=== PATIENT | male | born 1940 | race Caucasian/White ===

== ENCOUNTER 2017-04-17 15:58 | Emergency (ER) | payer MEDICARE ==
[~2017-04-17] VITALS: Ht 177.8 cm; Wt 120.0 kg
[~2017-04-17 15:58] MED LIST: ASPI325T PO; DORZ1SOL2 EACH EYE; LATA.005%O EACH EYE; SALS500 PO
--- NOTE | 2017-04-17 16:07 | PD ---
HPI Chief Complaint: fever Time Seen by Provider: 16:02 Travel History International Travel<30 days: No Contact w/Intl Traveler<30days: No Traveled to known affect area: No History of Present Illness HPI 76-year-old male patient presents to the ER brought in by EMS, apparently his car had broken down and he had called a tow truck, however, when a tow truck came, they found him in the car, with no air conditioning, and patient was disoriented. Patient currently is not able to answer questions appropriately, has a temperature of 102 according to EMS. Modifying Factors: None Associated Signs & Symptoms: Fever, altered mental status, possible heat related illness Risk Factors: Elderly PFSH Past Medical History Cardiac Catheterization: Yes Glaucoma: Yes Past Surgical History Abdominal Surgery: Yes (DOUBLE HERNIA REPAIR) Appendectomy: Yes Cholecystectomy: Yes Social History Alcohol Use: No Tobacco Use: No Substance Use: No Allergies-Medications (Allergen,Severity, Reaction): Uncoded Allergies: DECONGESTANT (Allergy, Severe, 05/12/13) Reported Meds & Prescriptions Reported Meds & Active Scripts Active Disalcid (Salsalate) 500 Mg Tab 1,000 Mg PO BID Reported Aspirin 325 Mg Tab 325 Mg PO DAILY Cosopt (Dorzolamide/Timolol) 5 Ml Soln 1 Drop EACH EYE BID Xalatan (Latanoprost) 0.005 % Soln 1 Drop EACH EYE HS Review of Systems ROS Limitations: Altered Mental Status Physical Exam Narrative GENERAL: Well-developed elderly white male patient currently in moderate distress, awake, alert, but not oriented. SKIN: Focused skin assessment hot/dry. HEAD: Atraumatic. Normocephalic. EYES: Pupils equal and round. No scleral icterus. No injection or drainage. ENT: No nasal bleeding or discharge. Mucous membranes pink and moist. NECK: Trachea midline. No JVD. CARDIOVASCULAR: Regular rate and rhythm. No murmur appreciated. RESPIRATORY: No accessory muscle use. Clear to auscultation. Breath sounds equal bilaterally. GASTROINTESTINAL: Abdomen soft, non-tender, nondistended. Hepatic and splenic margins not palpable. MUSCULOSKELETAL: No obvious deformities. No clubbing. No cyanosis. No edema. NEUROLOGICAL: Awake and alert. Not oriented. Not following commands. PSYCHIATRIC: Appropriate mood and affect; insight and judgment normal. Data Data Last Documented VS Vital Signs Date Time Temp Pulse Resp B/P Pulse Ox O2 Delivery O2 Flow Rate FiO2 04/17/17 17:53 99.0 82 20 123/77 96 Room Air Orders Electrocardiogram (04/17/17 16:02) Complete Blood Count With Diff (04/17/17 16:02) Comprehensive Metabolic Panel (04/17/17 16:) Prothrombin Time / Inr (Pt) (04/17/17 16:02) Act Partial Throm Time (Ptt) (04/17/17 16:02) Lactic Acid Sepsis Protocol (04/17/17 16:) Magnesium (Mg) (04/17/17 16:) Ckmb (Isoenzyme) Profile (04/17/17 16:) Troponin I (04/17/17 16:) Urinalysis - C+S If Indicated (04/17/17 16:) Blood Culture (04/17/17 16:02) Chest, Single Ap (04/17/17 16:02) Blood Glucose (04/17/17 16:) Ecg Monitoring (04/17/17 16:) Iv Access Insert/Monitor (04/17/17 16:) Oximetry (04/17/17 16:02) Oxygen Administration (04/17/17 16:02) Ct Brain W/O Iv Contrast(Rout) (04/17/17 16:02) Sodium Chlorid 0.9% 500 Ml Inj (Ns 500 M (04/17/17 16:15) Labs Laboratory Tests Test 04/17/17 16:20 White Blood Count 8.0 TH/MM3 Red Blood Count 4.32 MIL/MM3 Hemoglobin 12.3 GM/DL Hematocrit 38.1 % Mean Corpuscular Volume 88.3 FL Mean Corpuscular Hemoglobin 28.5 PG Mean Corpuscular Hemoglobin 32.3 % Concent Red Cell Distribution Width 13.9 % Platelet Count 230 TH/MM3 Mean Platelet Volume 8.0 FL Neutrophils (%) (Auto) 75.7 % Lymphocytes (%) (Auto) 15.1 % Monocytes (%) (Auto) 6.8 % Eosinophils (%) (Auto) 1.8 % Basophils (%) (Auto) 0.6 % Neutrophils # (Auto) 6.1 TH/MM3 Lymphocytes # (Auto) 1.2 TH/MM3 Monocytes # (Auto) 0.6 TH/MM3 Eosinophils # (Auto) 0.1 TH/MM3 Basophils # (Auto) 0.0 TH/MM3 CBC Comment DIFF FINAL Differential Comment Prothrombin Time 10.8 SEC Prothromb Time International 1.0 RATIO Ratio Activated Partial 24.6 SEC Thromboplast Time Urine Color YELLOW Urine Turbidity CLEAR Urine pH 5.0 Urine Specific [place] 1.015 Urine Protein NEG mg/dL Urine Glucose (UA) NEG mg/dL Urine Ketones NEG mg/dL Urine Occult Blood MOD Urine Nitrite NEG Urine Bilirubin NEG Urine Urobilinogen LESS THAN 2.0 MG/DL Urine Leukocyte Esterase TRACE Urine RBC 1 /hpf Urine WBC 1 /hpf Urine Amorphous Sediment RARE Urine Hyaline Casts 4 /lpf Microscopic Urinalysis Comment CATH-CULT NOT IND Sodium Level 140 MEQ/L Potassium Level 4.7 MEQ/L Chloride Level 109 MEQ/L Carbon Dioxide Level 19.9 MEQ/L Anion Gap 11 MEQ/L Blood Urea Nitrogen 27 MG/DL Creatinine 2.14 MG/DL Estimat Glomerular Filtration 30 ML/MIN Rate Random Glucose 118 MG/DL Lactic Acid Level 2.6 mmol/L Calcium Level 8.9 MG/DL Magnesium Level 1.7 MG/DL Total Bilirubin 0.4 MG/DL Aspartate Amino Transf 12 U/L (AST/SGOT) Alanine Aminotransferase 19 U/L (ALT/SGPT) Alkaline Phosphatase 71 U/L Total Creatine Kinase 94 U/L Troponin I LESS THAN 0.02 NG/ML Total Protein 7.3 GM/DL Albumin 3.4 GM/DL [facility] Medical Decision Making Medical Screen Exam Complete: Yes Emergency Medical Condition: Yes Medical Record Reviewed: Yes Interpretation(s) EKG shows NSR, no ST elevation or depression, and no arrhythmias. No significant T-wave inversions. Laboratory Tests Test 04/17/17 16:20 Red Blood Count 4.32 MIL/MM3 (4.50-5.90) Hemoglobin 12.3 GM/DL (13.0-17.0) Hematocrit 38.1 % (39.0-51.0) Neutrophils (%) (Auto) 75.7 % (16.0-70.0) Urine Occult Blood MOD (NEG) Urine Leukocyte Esterase TRACE (NEG) Chloride Level 109 MEQ/L (98-107) Carbon Dioxide Level 19.9 MEQ/L (21.0-32.0) Blood Urea Nitrogen 27 MG/DL (7-18) Creatinine 2.14 MG/DL (0.60-1.30) Estimat Glomerular Filtration 30 ML/MIN (>89) Rate Random Glucose 118 MG/DL (74-106) Lactic Acid Level 2.6 mmol/L (0.4-2.0) Aspartate Amino Transf 12 U/L (15-37) (AST/SGOT) Troponin I LESS THAN 0.02 NG/ML (0.02-0.05) Last [address] 04/17/17 1602 Signed Impressions: Service Date/Time: Monday, April 17, 2017 17:20 - CONCLUSION: Slight atrophic and small vessel ischemic changes without any evidence for acute hemorrhage or mass effect. Sriram Shipley MD Chest X-Ray 04/17/17 1602 Signed Impressions: Service Date/Time: Monday, April 17, 2017 15:59 - CONCLUSION: 1. Low lung volumes with mild bibasilar, left greater than right, airspace disease likely reflecting atelectasis. Differential considerations include aspiration in the appropriate clinical setting. Hudson Engel MD Differential Diagnosis Altered mental status, feverheat related illness versus sepsis versus metabolic issues versus dehydration versus acute intracranial processes Narrative Course Lab work shows elevated BUN and creatinine and likely some signs of dehydration. He was given IV fluids in the ER, and cold down. On reevaluation at 6:20 PM, he is feeling much improved and now conversant. He does not have any signs of acute intercranial processes. He has no focal neurological deficits. At this point, I have offered to admit him as an observation for further evaluation. However, patient is declining at this time, and states he wants to go home, states he feels fine. He is able to ambulate without issues in the ER. My plan would be to release him as requested by patient to follow- up with primary care physician. He should keep cool and Stay out of high places for now. Return for any worsening in symptoms as needed. The plan has been discussed with him and he is agreeable. Drink plenty of fluids. Diagnosis Primary Impression: Heat stroke Disposition: 01 DISCHARGE HOME Condition: Stable SoonAna Maria fine MD Apr 17, 2017 16:07
[2017-04-17 16:09] VITALS: BP 158/72; PULSE 99; RESP 26; TEMP 100.1; TEMP 101.3; O2SAT 92
[2017-04-17] MEDS ORDERED: SODIUM CHLORID 0.9% 500 ML INJ 500 ML IV ONE (16:15)
--- NOTE | 2017-04-17 16:44 | RADRPT ---
EXAM DATE/TIME: 04/17/2017 15:59 [facility] COMPARISON: No previous studies available for comparison. INDICATIONS : Syncopal episode. Patient found unresponsive in a hot car. MEDICAL HISTORY : Unobtainable. SURGICAL HISTORY : Unobtainable. ENCOUNTER: Initial ACUITY: 1 day PAIN SCORE: Non-responsive. LOCATION: Bilateral chest FINDINGS: Low lung volumes accentuate interstitial markings. Mild, left greater then right, bilateral lower suzan g zone air space disease. Cardiomediastinal contours are within normal limits given degree of hypoexp ansion and portable technique. Osseous structures are intact. CONCLUSION: 1. Low lung volumes with mild bibasilar, left greater than right, airspace disease likely reflecting atelectasis. Differential considerations include aspiration in the appropriate clinical setting. Hudson Engel MD on April 17, 2017 at 16:42 Board Certified Radiologist. This report was verified electronically.
[2017-04-17 16:57] LABS: BLOOD, URINE MOD (NEG); GLUCOSE,URINE NEG (NEG); HYALINE CAST, URINE 4 /lpf (RARE); KETONE, URINE NEG (NEG); NITRITE,URINE NEG (NEG); URINE COLOR YELLOW (YELLW/STRAW)
[2017-04-17 16:58] LABS: COMMENT (UR) CATH-CULT NOT IND; CULTURE IF INDICATED CATH CULTURE NOT IND
[2017-04-17 17:11] LABS: AUTOMATED NEUTROPHIL # 6.1 TH/MM3 (1.8-7.7); BASOPHIL % 0.6 % (0.0-2.0); EOSINOPHIL # 0.1 TH/MM3 (0-0.4); EOSINOPHIL % 1.8 % (0.0-4.0); HEMATOCRIT 38.1 % (39.0-51.0); HEMO FLAGS DIFF FINAL; LYMPH % 15.1 % (9.0-44.0); LYMPHOCYTE # 1.2 TH/MM3 (1.0-4.8); MEAN CELL VOLUME 88.3 FL (80.0-100.0); MEAN CORPUSCULAR HEMOGLOBIN 28.5 PG (27.0-34.0); MEAN CORPUSCULAR HGB CONC 32.3 % (32.0-36.0); MONO % 6.8 % (0.0-8.0); NEUT % 75.7 % (16.0-70.0); PLATELET COUNT 230 TH/MM3 (150-450); RED BLOOD COUNT 4.32 MIL/MM3 (4.50-5.90); RED CELL DISTRIBUTION WIDTH 13.9 % (11.6-17.2)
[2017-04-17 17:16] LABS: APTT (PATIENT) 24.6 SEC (24.3-30.1); PROTHROMBIN TIME - PATIENT 10.8 SEC (9.8-11.6)
[2017-04-17 17:22] LABS: ANION GAP 11 MEQ/L (5-15); AST (GOT) 12 U/L (15-37); BICARBONATE 19.9 MEQ/L (21.0-32.0); BLOOD UREA NITROGEN 27 MG/DL (7-18); CHLORIDE 109 MEQ/L (98-107); GLOMERULAR FILTRATION RATE 30 ML/MIN (>89); MAGNESIUM 1.7 MG/DL (1.5-2.5); POTASSIUM 4.7 MEQ/L (3.5-5.1); SODIUM (NA) 140 MEQ/L (136-145)
[2017-04-17 17:27] LABS: ALKALINE PHOSPHATASE 71 U/L (45-117); ALT (GPT) 19 U/L (12-78); TOTAL BILIRUBIN ADULT 0.4 MG/DL (0.2-1.0)
[2017-04-17 17:36] LABS: CREATINE KINASE 94 U/L (39-308)
--- NOTE | 2017-04-17 17:51 | RADRPT ---
EXAM DATE/TIME: 04/17/2017 17:20 [facility] COMPARISON: No previous studies available for comparison. INDICATIONS : Altered mental status. RADIATION DOSE: 69.15 CTDIvol (mGy) MEDICAL HISTORY : Cardiovascular disease. SURGICAL HISTORY : Appendectomy. Cholecystectomy. ENCOUNTER: Initial ACUITY: 1 day PAIN SCALE: 0/10 LOCATION: cranial TECHNIQUE: Multiple contiguous axial images were obtained of the head. Using automated exposure control and adj ustment of the mA and/or kV according to patient size, radiation dose was kept as low as reasonably a chievable to obtain optimal diagnostic quality images. DICOM format image data is available electro nically for review and comparison. FINDINGS: There is no evidence for intracranial hemorrhage, mass effect, mass lesions, or edema. The visualize d bony structures appear intact. Slight degree of brain atrophy is seen. Slight periventricular whit e matter changes are seen nonspecific mostly consistent with chronic small vessel ischemic changes. There are no signs of acute infarction for technique. CONCLUSION: Slight atrophic and small vessel ischemic changes without any evidence for acute hemorrhage or mass effect. Sriram Shipley MD on April 17, 2017 at 17:48 Board Certified Radiologist. This report was verified electronically.
[2017-04-17 17:53] VITALS: BP 123/77; PULSE 82; RESP 20; TEMP 99; O2SAT 96
[2017-04-17 18:51] LABS: LACTIC ACID GHOST NOT REPORTABLE
--- NOTE | 2017-04-18 10:26 | EKG ---
Date Performed: 04/17/2017 Time Performed: 16:21:23 PTAGE: 76 years EKG: Sinus rhythm MODERATE INTRAVENTRICULAR CONDUCTION DELAY NONSPECIFIC ST & T-WAVE ABNORMALITY BORDERLINE ECG NO PREVIOUS TRACING ST-T wave changes secondary to intraventricular conduction delay or p ossible ischemia. DOCTOR: Deshawn Albright Interpretating Date/Time 04/18/2017 10:26:17
== END 2017-04-17 19:07 | disposition home or self-care (01) ==
LOC: NEPC 15:58
DX: T67.0XXA Heatstroke and sunstroke, initial encounter (principal); X30.XXXA Exposure to excessive natural heat, initial encounter; Z79.82 Long term (current) use of aspirin; Z79.899 Other long term (current) drug therapy
CPT/HCPCS: 70450; 71010; 80053; 81001; 82550; 83605; 83735; 84484; 85025; 85610; 85730; 87040; 93005; 96360; 99285; J7040

== ENCOUNTER 2018-07-15 19:00 | Inpatient (IN) ==
--- NOTE | 2018-07-15 20:46 | ED ---
HPI General Chief Complaint: Fall Stated Complaint: fall yesterday-head gash Time Seen by Provider: 07/15/18 20:16 History of Present Illness HPI Narrative: Patient is a 77-year-old male who was in his kitchen fixing some tea when he suddenly syncopized he does not remember exactly how or why he passed out he says I think I passed out he has a head laceration to his crown of his head and over the right eyebrow there is a linear laceration 3 cm not bleeding at this time dry blood. He denies chest pain prior to the event he denies any fluid loss no diarrhea no vomiting no fevers he was fine all morning up until the event. He has had no medical care for many years the only thing he is aware that he has glaucoma for which he does use drops otherwise he is not on any systemic medications denies blood hypertension denies diabetes denies cardiac history. He says once in the distant past he passed out as well never had any follow-up and does not know why. Now he is back to his baseline awake alert his sister is bedside patient is only obvious injury is the head and the eye laceration above the eyebrow as well as a bruise to the fourth finger on the left hand Related Data Home Medications Medication Instructions Recorded Confirmed dorzolamide-timolol [Cosopt] 1 drp RIGHT EYE HS 07/15/18 07/15/18 Allergies Allergy/AdvReac Type Severity Reaction Status Date / Time No Known Allergies Allergy Unverified 07/15/18 20:22 Review of Systems ROS: all other systems reviewed are negative [facility] Social History Social History Substance History: No History of Abuse Second Hand Smoke Exposure: No Smoking Status: Never smoker How Often Do You Have a Drink Containing Alcohol: Never Recent Travel in [facility] within the Last 8 Weeks: No Recent Out of Country Travel within the Last 8 Weeks: No Immunization History Tetanus Immunization: >5 Years Exam Narrative Exam Narrative: GENERAL: awake alert seems calm not very animated in his responses ( sister says affect is his baseline) SKIN: Warm and dry. lac to right forehead to right eyebrow dried blod no active bleeding HEAD: + Traumatic. Normocephalic. Lac to scalp 5 cm EYES: Pupils equal and round. No scleral icterus. No injection or drainage. ENT: No nasal bleeding or discharge. Mucous membranes pink and moist. NECK: Trachea midline. No JVD. CARDIOVASCULAR: Regular rate and rhythm. RESPIRATORY: No accessory muscle use. Clear to auscultation. Breath sounds equal bilaterally. GASTROINTESTINAL: Abdomen soft, non-tender, nondistended. Hepatic and splenic margins not palpable. MUSCULOSKELETAL: Extremities third finger bruise purple to left third PIP area No obvious deformities. NEUROLOGICAL: Awake and alert. No obvious cranial nerve deficits. Motor grossly within normal limits. Five out of 5 muscle strength in the arms and legs. Normal speech. PSYCHIATRIC: Appropriate mood flat affect; insight and judgment normal. Course Initial Documented Vital Signs Temperature 97.4 F L 07/15/18 19:24 Pulse Rate 92 H 07/15/18 19:24 Respiratory Rate 20 07/15/18 19:24 Blood Pressure 125/68 07/15/18 19:24 Pulse Oximetry 97 07/15/18 19:24 Last Documented Vital Signs Temperature 98.2 F 07/19/18 12:09 Pulse Rate 68 07/19/18 12:09 Respiratory Rate 20 07/19/18 12:09 Blood Pressure 163/89 H 07/19/18 12:09 Pulse Oximetry 98 07/19/18 12:09 Medical Decision Making [facility] Narrative Medical decision making narrative: CT head and face and cervical , laceration repaired by PA and admitted syncope Medical Screen Exam Complete: Yes Emergency Medical Condition: Yes Differential Diagnosis Differential Diagnosis: mechanical fall vs syncope due to neuro vs cardiac vs orthostatic vs arrhythmia to syncope other head injury skull fracture vs intracranial bleed other laceration scalp face Lab Data Result diagrams: 07/17/18 06:35 07/19/18 06:48 Lab Results 07/15/18 07/15/18 07/16/18 Range/Units 20:34 20:34 02:26 WBC 11.9 H (4.0-11.0) th/mm3 RBC 4.12 L (4.50-5.90) mil/mm3 Hgb 12.1 L (13.0-17.0) gm/dL Hct 36.8 L (39.0-51.0) % MCV 89.3 (80.0-100.0) fL MCH 29.5 (27.0-34.0) pg MCHC 33.0 (32.0-36.0) % RDW 13.5 (11.6-17.2) % Plt Count 267 (150-450) th/mm3 MPV 7.1 (7.0-11.0) fL Neut % (Auto) 85.9 H (16.0-70.0) % Lymph % (Auto) 7.7 L (9.0-44.0) % [place] % (Auto) 5.9 (0.0-8.0) % Eos % (Auto) 0.2 (0.0-4.0) % Baso % (Auto) 0.3 (0.0-2.0) % Neut # (Auto) 10.2 H (1.8-7.7) th/mm3 Lymph # (Auto) 0.9 L (1.0-4.8) th/mm3 [place] # (Auto) 0.7 (0.0-0.9) th/mm3 Eos # (Auto) 0.0 (0.0-0.4) th/mm3 Baso # (Auto) 0.0 (0.0-0.2) th/mm3 WBC Differential . Differential Comment Auto diff final Sodium 139 (136-145) meq/L Potassium 4.5 (3.5-5.1) meq/L Chloride 105 (98-107) meq/L Carbon Dioxide 23.1 (21.0-32.0) meq/L Anion Gap 11 (5-15) meq/L BUN 31 H (7-18) mg/dL Creatinine 2.81 H (0.60-1.30) mg/dL Estimated GFR 22 L (>89) mL/min Random Glucose 130 H (74-106) mg/dL Hemoglobin A1c (4.3-6.0) % Calcium 8.5 (8.5-10.1) mg/dL Total Bilirubin 0.2 (0.2-1.0) mg/dL AST 24 (15-37) U/L ALT 22 (12-78) U/L Alkaline Phosphatase 83 (45-117) U/L Total Creatine Kinase (39-308) U/L Troponin I 0.03 0.03 (0.02-0.05) ng/mL Total Protein 7.4 (6.4-8.2) g/dL Albumin 3.3 L (3.4-5.0) g/dL Triglycerides (42-150) mg/dL Cholesterol (120-200) mg/dL LDL Cholesterol, Calc (0-99) mg/dL HDL Cholesterol (40.0-60.0) mg/dL Cholesterol/HDL Ratio Ratio Cortisol mcg/dL Urine Color (Yellw/Straw) Urine Clarity (Clear) Urine pH (5.0-8.5) Ur Specific [place] (1.002-1.035) Urine Protein (Neg-Trace) mg/dL Urine Glucose (UA) (Negative) mg/dL Urine Ketones (Negative) mg/dL Urine Occult Blood (Negative) Urine Nitrate (Negative) Urine Bilirubin (Negative) Urine Urobilinogen (Less than 2) mg/dL Ur Leukocyte Esterase (Negative) Urine RBC (0-3) /hpf Urine WBC (0-5) /hpf Ur Squamous Epith Cells (0-5) /hpf Urine Bacteria (None) /hpf Hyaline Casts (0-3) /lpf Urine Mucus (Occasional) /lpf Micro UA Comment Ur Microscopic Review Urine Culture Comments 07/16/18 07/16/18 07/16/18 Range/Units 07:05 07:05 07:05 WBC 6.8 (4.0-11.0) th/mm3 RBC 3.79 L (4.50-5.90) mil/mm3 Hgb 11.2 L (13.0-17.0) gm/dL Hct 33.3 L (39.0-51.0) % MCV 87.9 (80.0-100.0) fL MCH 29.5 (27.0-34.0) pg MCHC 33.6 (32.0-36.0) % RDW 13.6 (11.6-17.2) % Plt Count 214 (150-450) th/mm3 MPV 7.2 (7.0-11.0) fL Neut % (Auto) 74.6 H (16.0-70.0) % Lymph % (Auto) 16.2 (9.0-44.0) % [place] % (Auto) 7.3 (0.0-8.0) % Eos % (Auto) 1.4 (0.0-4.0) % Baso % (Auto) 0.5 (0.0-2.0) % Neut # (Auto) 5.1 (1.8-7.7) th/mm3 Lymph # (Auto) 1.1 (1.0-4.8) th/mm3 [place] # (Auto) 0.5 (0.0-0.9) th/mm3 Eos # (Auto) 0.1 (0.0-0.4) th/mm3 Baso # (Auto) 0.0 (0.0-0.2) th/mm3 WBC Differential . Differential Comment Auto diff final Sodium 140 (136-145) meq/L Potassium 4.4 (3.5-5.1) meq/L Chloride 107 (98-107) meq/L Carbon Dioxide 22.0 (21.0-32.0) meq/L Anion Gap 11 (5-15) meq/L BUN 27 H (7-18) mg/dL Creatinine 2.40 H (0.60-1.30) mg/dL Estimated GFR 26 L (>89) mL/min Random Glucose 104 (74-106) mg/dL Hemoglobin A1c 6.2 H (4.3-6.0) % Calcium 8.3 L (8.5-10.1) mg/dL Total Bilirubin 0.4 (0.2-1.0) mg/dL AST 19 (15-37) U/L ALT 18 (12-78) U/L Alkaline Phosphatase 67 (45-117) U/L Total Creatine Kinase (39-308) U/L Troponin I 0.02 (0.02-0.05) ng/mL Total Protein 6.6 D (6.4-8.2) g/dL Albumin 2.9 L (3.4-5.0) g/dL Triglycerides (42-150) mg/dL Cholesterol (120-200) mg/dL LDL Cholesterol, Calc (0-99) mg/dL HDL Cholesterol (40.0-60.0) mg/dL Cholesterol/HDL Ratio Ratio Cortisol mcg/dL Urine Color (Yellw/Straw) Urine Clarity (Clear) Urine pH (5.0-8.5) Ur Specific [place] (1.002-1.035) Urine Protein (Neg-Trace) mg/dL Urine Glucose (UA) (Negative) mg/dL Urine Ketones (Negative) mg/dL Urine Occult Blood (Negative) Urine Nitrate (Negative) Urine Bilirubin (Negative) Urine Urobilinogen (Less than 2) mg/dL Ur Leukocyte Esterase (Negative) Urine RBC (0-3) /hpf Urine WBC (0-5) /hpf Ur Squamous Epith Cells (0-5) /hpf Urine Bacteria (None) /hpf Hyaline Casts (0-3) /lpf Urine Mucus (Occasional) /lpf Micro UA Comment Ur Microscopic Review Urine Culture Comments 07/16/18 07/17/18 07/17/18 Range/Units 19:00 06:30 06:35 WBC 7.1 (4.0-11.0) th/mm3 RBC 3.69 L (4.50-5.90) mil/mm3 Hgb 10.8 L (13.0-17.0) gm/dL Hct 32.9 L (39.0-51.0) % MCV 89.1 (80.0-100.0) fL MCH 29.4 (27.0-34.0) pg MCHC 33.0 (32.0-36.0) % RDW 13.6 (11.6-17.2) % Plt Count 210 (150-450) th/mm3 MPV 7.4 (7.0-11.0) fL Neut % (Auto) 75.0 H (16.0-70.0) % Lymph % (Auto) 15.7 (9.0-44.0) % [place] % (Auto) 6.5 (0.0-8.0) % Eos % (Auto) 2.2 (0.0-4.0) % Baso % (Auto) 0.6 (0.0-2.0) % Neut # (Auto) 5.4 (1.8-7.7) th/mm3 Lymph # (Auto) 1.1 (1.0-4.8) th/mm3 [place] # (Auto) 0.5 (0.0-0.9) th/mm3 Eos # (Auto) 0.2 (0.0-0.4) th/mm3 Baso # (Auto) 0.0 (0.0-0.2) th/mm3 WBC Differential . Differential Comment Auto diff final Sodium 145 (136-145) meq/L Potassium 4.8 (3.5-5.1) meq/L Chloride 111 H (98-107) meq/L Carbon Dioxide 23.9 (21.0-32.0) meq/L Anion Gap 10 (5-15) meq/L BUN 27 H (7-18) mg/dL Creatinine 2.34 H (0.60-1.30) mg/dL Estimated GFR 27 L (>89) mL/min Random Glucose 86 (74-106) mg/dL Hemoglobin A1c (4.3-6.0) % Calcium 7.9 L (8.5-10.1) mg/dL Total Bilirubin (0.2-1.0) mg/dL AST (15-37) U/L ALT (12-78) U/L Alkaline Phosphatase (45-117) U/L Total Creatine Kinase 180 (39-308) U/L Troponin I (0.02-0.05) ng/mL Total Protein (6.4-8.2) g/dL Albumin (3.4-5.0) g/dL Triglycerides 100 (42-150) mg/dL Cholesterol 151 (120-200) mg/dL LDL Cholesterol, Calc 94 (0-99) mg/dL HDL Cholesterol 37.1 L (40.0-60.0) mg/dL Cholesterol/HDL Ratio 4.07 Ratio Cortisol mcg/dL Urine Color Yellow (Yellw/Straw) Urine Clarity Cloudy H (Clear) Urine pH 5.0 (5.0-8.5) Ur Specific [place] 1.013 (1.002-1.035) Urine Protein 30 H (Neg-Trace) mg/dL Urine Glucose (UA) Negative (Negative) mg/dL Urine Ketones Negative (Negative) mg/dL Urine Occult Blood Large H (Negative) Urine Nitrate Negative (Negative) Urine Bilirubin Negative (Negative) Urine Urobilinogen Less than 2 (Less than 2) mg/dL Ur Leukocyte Esterase Small H (Negative) Urine RBC (0-3) /hpf Urine WBC 26 H (0-5) /hpf Ur Squamous Epith Cells 1 (0-5) /hpf Urine Bacteria Rare H (None) /hpf Hyaline Casts 1 (0-3) /lpf Urine Mucus Few H (Occasional) /lpf Micro UA Comment Culture indicated Ur Microscopic Review Not Reportable Urine Culture Comments Culture indicated 07/18/18 07/19/18 07/19/18 Range/Units 04:55 06:48 06:48 WBC (4.0-11.0) th/mm3 RBC (4.50-5.90) mil/mm3 Hgb (13.0-17.0) gm/dL Hct (39.0-51.0) % MCV (80.0-100.0) fL MCH (27.0-34.0) pg MCHC (32.0-36.0) % RDW (11.6-17.2) % Plt Count (150-450) th/mm3 MPV (7.0-11.0) fL Neut % (Auto) (16.0-70.0) % Lymph % (Auto) (9.0-44.0) % [place] % (Auto) (0.0-8.0) % Eos % (Auto) (0.0-4.0) % Baso % (Auto) (0.0-2.0) % Neut # (Auto) (1.8-7.7) th/mm3 Lymph # (Auto) (1.0-4.8) th/mm3 [place] # (Auto) (0.0-0.9) th/mm3 Eos # (Auto) (0.0-0.4) th/mm3 Baso # (Auto) (0.0-0.2) th/mm3 WBC Differential Differential Comment Sodium 141 140 (136-145) meq/L Potassium 4.6 4.8 (3.5-5.1) meq/L Chloride 109 H 108 H (98-107) meq/L Carbon Dioxide 21.7 23.8 (21.0-32.0) meq/L Anion Gap 10 8 (5-15) meq/L BUN 31 H 33 H (7-18) mg/dL Creatinine 2.38 H 2.31 H (0.60-1.30) mg/dL Estimated GFR 27 L 27 L (>89) mL/min Random Glucose 100 88 (74-106) mg/dL Hemoglobin A1c (4.3-6.0) % Calcium 8.6 8.7 (8.5-10.1) mg/dL Total Bilirubin (0.2-1.0) mg/dL AST (15-37) U/L ALT (12-78) U/L Alkaline Phosphatase (45-117) U/L Total Creatine Kinase (39-308) U/L Troponin I (0.02-0.05) ng/mL Total Protein (6.4-8.2) g/dL Albumin (3.4-5.0) g/dL Triglycerides (42-150) mg/dL Cholesterol (120-200) mg/dL LDL Cholesterol, Calc (0-99) mg/dL HDL Cholesterol (40.0-60.0) mg/dL Cholesterol/HDL Ratio Ratio Cortisol 16.6 mcg/dL Urine Color (Yellw/Straw) Urine Clarity (Clear) Urine pH (5.0-8.5) Ur Specific [place] (1.002-1.035) Urine Protein (Neg-Trace) mg/dL Urine Glucose (UA) (Negative) mg/dL Urine Ketones (Negative) mg/dL Urine Occult Blood (Negative) Urine Nitrate (Negative) Urine Bilirubin (Negative) Urine Urobilinogen (Less than 2) mg/dL Ur Leukocyte Esterase (Negative) Urine RBC (0-3) /hpf Urine WBC (0-5) /hpf Ur Squamous Epith Cells (0-5) /hpf Urine Bacteria (None) /hpf Hyaline Casts (0-3) /lpf Urine Mucus (Occasional) /lpf Micro UA Comment Ur Microscopic Review Urine Culture Comments Imaging Data Radiologist's impression: Cervical Spine CT 07/15/18 20:26 CONCLUSION: 1. No evidence of compression deformity or spondylolisthesis. 2. Multilevel degenerative changes with neural foraminal stenosis as described above. Face CT 07/15/18 20:26 CONCLUSION: 1. No facial bone fractures seen. Head CT 07/15/18 20:26 CONCLUSION: 1. No acute findings in the brain. 2. Stable moderate severity central and cortical atrophy. . Abdomen/Bladder Ultrasound 07/16/18 00:00 CONCLUSION: 1. Mild hydronephrosis left kidney. 2. Nonobstructing bilateral renal calculi. 3. Bladder calculus measures 9 mm. 4. Enlarged prostate gland. Chest X-Ray 07/16/18 00:00 CONCLUSION: No acute cardiopulmonary abnormality is identified. Finger X-Ray 07/16/18 00:00 CONCLUSION: Acute avulsion fracture involving the dorsal aspects of the distal phalanx of the third finger with resulting flexion of the joint. Discharge Plan Discharge Disposition Patient Disposition: 30 Still Patient Physicians Team ED Provider: Mike Resendiz Primary Care Provider: Primary Care Quinn,Heather Attending Provider: Neil Parham Other Providers: En Mata Discharge Interventions Interventions: ED Discharge Assessment Last Done: 07/15/18 23:45 Vital Signs Last Done: 07/15/18 20:39 Status ED Status: Left Department Discharge Information Discharge Date/Time: 07/15/18 23:46
[2018-07-15 20:49] LABS: Baso % (Auto) 0.3 % (0.0-2.0); Eos % (Auto) 0.2 % (0.0-4.0); Hematocrit 36.8 % (39.0-51.0); Hemoglobin 12.1 gm/dL (13.0-17.0); Lymph # (Auto) 0.9 th/mm3 (1.0-4.8); Lymph % (Auto) 7.7 % (9.0-44.0); Mean Corpuscular Hemoglobin 29.5 pg (27.0-34.0); Mean Corpuscular Volume 89.3 fL (80.0-100.0); Mean Platelet Volume 7.1 fL (7.0-11.0); Mono # (Auto) 0.7 th/mm3 (0.0-0.9); Mono % (Auto) 5.9 % (0.0-8.0); Neut # (Auto) 10.2 th/mm3 (1.8-7.7); Neut % (Auto) 85.9 % (16.0-70.0); Platelet Count 267 th/mm3 (150-450); Red Blood Count 4.12 mil/mm3 (4.50-5.90); Red Cell Distribution Width 13.5 % (11.6-17.2); White Blood Count 11.9 th/mm3 (4.0-11.0)
--- NOTE | 2018-07-15 21:01 | CT ---
EXAM DATE: 07/15/2018 8:30 PM EDT AGE/SEX: 77 years / Male INDICATIONS: Trauma. Fell yesterday. CLINICAL DATA: This is the patient's initial encounter. Patient reports that signs and symptoms have been present for 1 day and indicates a pain score of 0/10. MEDICAL/SURGICAL HISTORY: None. Appendectomy. Cholecystectomy. RADIATION DOSE: 63.50 CTDI (mGy) COMPARISON: No prior exams available for comparison. TECHNIQUE: Contiguous images in the axial and coronal planes were obtained using helical multirow de tector technique. Using automated exposure control and adjustment of the mA and/or kV according to p atient size, radiation dose was kept as low as reasonably achievable to obtain optimal diagnostic saleem lity images. DICOM format image data is available electronically for review and comparison. FINDINGS: Orbits: The orbital and infraorbital osseous structures are intact. The retroconal structures have a normal configuration. No radiopaque foreign bodies are seen. Nasal Bone: The nasal bone and maxillary spine are intact. Zygomatic Arches: Symmetric without evidence of fracture. Sinuses: Minimal mucosal thickening in the posterior left maxillary sinus. Remainder of the paranasa l sinuses are clear. Nasal Cavity: The nasal septum is intact and midline. The lacrimal ducts are intact. Soft Tissues: No radiopaque foreign bodies seen. No soft-tissue swelling is seen. Intracranial: No intracranial air seen. Cribriform Plate: Grossly intact. CONCLUSION: 1. No facial bone fractures seen. Electronically signed by: Dion Wyatt MD 07/15/2018 8:59 PM EDT
--- NOTE | 2018-07-15 21:02 | CT ---
EXAM DATE: 07/15/2018 8:30 PM EDT AGE/SEX: 77 years / Male INDICATIONS: Fell yesterday with laceration top of head. CLINICAL DATA: This is the patient's initial encounter. Patient reports that signs and symptoms have been present for 1 day and indicates a pain score of 0/10. MEDICAL/SURGICAL HISTORY: None. Appendectomy. Cholecystectomy. RADIATION DOSE: 34.49 CTDI (mGy) COMPARISON: [facility] [place], 04/17/2017. . TECHNIQUE: CT of the head without contrast. Using automated exposure control and adjustment of the mA and/or kV according to patient size, radiation dose was kept as low as reasonably achievable to ob tain optimal diagnostic quality images. DICOM format image data is available electronically for revi ew and comparison. FINDINGS: Cerebrum: The ventricles, sulci, and basal cisterns are prominent characteristic of moderate severit y central cortical atrophy, stable in severity when compared to April 2017.. No evidence of midline s hift, mass lesion, hemorrhage or acute infarction. No extraaxial fluid collections are seen. Posterior Fossa: The cerebellum and brainstem are intact. The 4th ventricle is midline. The cerebe llopontine angle is unremarkable. Extracranial: The visualized portion of the orbits is intact. Minimal mucosal thickening posterior l eft maxillary sinus. Skull: The calvaria is intact. No evidence of skull fracture. CONCLUSION: 1. No acute findings in the brain. 2. Stable moderate severity central and cortical atrophy. . Electronically signed by: Dion Wyatt MD 07/15/2018 9:01 PM EDT
[2018-07-15 21:09] LABS: Alkaline Phosphatase 83 U/L (45-117); Total Protein 7.4 g/dL (6.4-8.2); Troponin I 0.03 ng/mL (0.02-0.05)
[2018-07-15 21:11] LABS: Alanine Aminotransferase 22 U/L (12-78); Albumin 3.3 g/dL (3.4-5.0); Anion Gap 11 meq/L (5-15); Aspartate Aminotransferase 24 U/L (15-37); Blood Urea Nitrogen 31 mg/dL (7-18); Calcium 8.5 mg/dL (8.5-10.1); Carbon Dioxide 23.1 meq/L (21.0-32.0); Chloride 105 meq/L (98-107); Glomerular Filtration Rate 22 mL/min (>89); Glucose,Random 130 mg/dL (74-106); Potassium 4.5 meq/L (3.5-5.1); Sodium 139 meq/L (136-145)
--- NOTE | 2018-07-15 21:12 | CT ---
EXAM DATE: 07/15/2018 8:30 PM EDT AGE/SEX: 77 years / Male INDICATIONS: Trauma. Fell yesterday. CLINICAL DATA: This is the patient's initial encounter. Patient reports that signs and symptoms have been present for 1 day and indicates a pain score of 0/10. MEDICAL/SURGICAL HISTORY: None. Appendectomy. Cholecystectomy. RADIATION DOSE: 25.02 CTDI (mGy) COMPARISON: No prior exams available for comparison. TECHNIQUE: Contiguous axial images were obtained using helical multirow detector technique. The vol umetric data was post-processed with multiplanar reconstruction in oblique axial, sagittal, and coron al planes. Using automated exposure control and adjustment of the mA and/or kV according to patient s ize, radiation dose was kept as low as reasonably achievable to obtain optimal diagnostic quality justo ges. DICOM format image data is available electronically for review and comparison. FINDINGS: There is normal alignment of the vertebral bodies of the cervical spine and preservation of vertebra l body height. Moderate severity discogenic degenerative changes are present at C5-C7 with interspace narrowing and prominent posterior osteophytes. There is moderate severity arthrosis of the facet catrina nts of the mid and lower cervical spine, right greater than left without evidence of locked or perche d facets. The atlantoaxial articulation is intact. C2-3: No fracture seen. The neural foramina are patent. C3-4: No fracture seen. Severe right-sided bony neural foraminal stenosis. C4-5: No fracture seen. Moderate severity bilateral bony neural foraminal stenosis. C5-6: No fracture seen. Severe right-sided and moderate severity left-sided bony neural foraminal st enosis. C6-7: No fracture seen. Severe bilateral bony neural foraminal stenosis. C7-T1: No fracture seen. The neural foramina are patent. CONCLUSION: 1. No evidence of compression deformity or spondylolisthesis. 2. Multilevel degenerative changes with neural foraminal stenosis as described above. Electronically signed by: Dion Wyatt MD 07/15/2018 9:11 PM EDT
[2018-07-15] MEDS ORDERED: Acetaminophen 325 MG Tablet PO PRN (22:58)
[2018-07-15] MEDS ORDERED: Bisacodyl 10 MG Supp RECTAL PRN (22:58)
--- NOTE | 2018-07-15 23:00 | P.HPIM ---
History of Present Illness Primary Care Physician: No Primary Care Physician History of Present Illness: This is a 77-year-old male with a PMH of Glaucoma who was brought to the ER after apparent syncopal event. Pt w/ mechanical trip and fall, +head trauma, unsure if he had LOC. No fever, chills or chest pain. On arrival, BP 125/68, HR 90, O2 sat 97% on RA, Afebrile. WBC 11.9. Creatinine 2.81, previously 2.14 on 04/17/17. CT C-spine with no acute compression deformity. CT Head negative for acute findings. CT Maxillofacial negative for fracture. S/p laceration repair in ER. - Diagnosis (1) Syncope (2) Laceration of head (3) Leukocytosis Review of Systems PAST FAMILY HISTORY: Reviewed. No h/o DM or CAD All other systems reviewed negative except as stated in HPI [facility] - History History Provided By: Patient - Medical History Medical History: Medical History (Last Updated 07/15/18 @ 19:25 by Joel Gibbs) Glaucoma - Surgical History Surgical History: Surgical History (Last Updated 07/15/18 @ 20:25 by Laura Segal RN) H/O hernia repair History of appendectomy History of cholecystectomy - Tobacco History Second Hand Smoke Exposure: No Smoking Status: Never smoker - Alcohol History How Often Do You Have a Drink Containing Alcohol: 4 or more times a week - Substance Use History Substance History: No History of Abuse - Travel History Recent Travel in the [place] Within the Last 8 Weeks: No Recent Travel Out of the Country Within the Last 8 Weeks: No - Immunization History Tetanus Immunization: >5 Years Medications and Allergies Allergies Allergy/AdvReac Type Severity Reaction Status Date / Time No Known Allergies Allergy Unverified 07/15/18 20:22 Home Medications Medication Instructions Recorded Confirmed Type dorzolamide-timolol [Cosopt] 1 drp RIGHT EYE HS 07/15/18 07/15/18 History Exam Vital signs: Vital Signs 07/15/18 19:24 07/15/18 20:39 Temperature 97.4 F L Pulse Rate 92 H 84 Respiratory Rate 20 18 Blood Pressure 125/68 154/77 H Pulse Oximetry 97 95 Intake & Output 07/15/18 07/15/18 07/16/18 06:59 18:59 06:59 Weight 113.398 kg Narrative: PE: GENERAL: Pleasant elderly male in no acute distress. SKIN: Focused skin assessment warm and dry. +head laceration, +eyebrow laceration. HEENT: PERRLA, EOMI. No scleral icterus or conjunctival pallor. No lid lag or facial droop. CARDIOVASCULAR: Regular rate and rhythm. No obvious murmurs to auscultation. No chest tenderness to palpation. RESPIRATORY: No obvious rhonchi or wheezing. Clear to auscultation. Breath sounds equal bilaterally. GASTROINTESTINAL: Abdomen soft, non-tender, nondistended. BS normal. MUSCULOSKELETAL: Extremities without clubbing, cyanosis, or edema. No obvious deformities. NEUROLOGICAL: Awake, alert and oriented x4. No focal neurologic deficits. Moving both upper and lower extremities spontaneously. PSYCHIATRIC: Appropriate mood and affect. Insight and judgment normal. Results - Labs CBC & Chem 7: 07/15/18 20:34 07/15/18 20:34 Labs: Short CBC 07/15/18 Range/Units 20:34 WBC 11.9 H (4.0-11.0) th/mm3 Hgb 12.1 L (13.0-17.0) gm/dL Hct 36.8 L (39.0-51.0) % Plt Count 267 (150-450) th/mm3 BMP 07/15/18 20:34 Sodium 139 Potassium 4.5 Chloride 105 Carbon Dioxide 23.1 BUN 31 H Creatinine 2.81 H Calcium 8.5 Cardiac Enzymes 07/15/18 Range/Units 20:34 Troponin I 0.03 (0.02-0.05) ng/mL Liver Function 07/15/18 Range/Units 20:34 Total Bilirubin 0.2 (0.2-1.0) mg/dL AST 24 (15-37) U/L ALT 22 (12-78) U/L Alkaline Phosphatase 83 (45-117) U/L Albumin 3.3 L (3.4-5.0) g/dL - Imaging Impressions Cervical Spine CT 07/15/18 20:26 CONCLUSION: 1. No evidence of compression deformity or spondylolisthesis. 2. Multilevel degenerative changes with neural foraminal stenosis as described above. Face CT 07/15/18 20:26 CONCLUSION: 1. No facial bone fractures seen. Head CT 07/15/18 20:26 CONCLUSION: 1. No acute findings in the brain. 2. Stable moderate severity central and cortical atrophy. . Caprini VTE Risk Assessment Caprini VTE Risk Assessment: No/Low Risk (score <= 1) Caprini Risk Assessment Model: Point Value = 1 Point Value = 2 Point Value = 3 Point Value = 5 Age 41-60 Minor surgery BMI > 25 kg/m2 Swollen legs Varicose veins or History of unexplained or recurrent spontaneous Oral contraceptives or hormone replacement Sepsis (< 1 month) Serious lung disease, including pneumonia (< 1 month) Abnormal pulmonary function Acute myocardial infarction Congestive heart failure (< 1 month) History of inflammatory bowel disease Medical patient at bed rest Age 61-74 Arthroscopic surgery Major open surgery (> 45 min) Laparoscopic surgery (> 45 min) Malignancy Confined to bed (> 72 hours) Immobilizing plaster cast Central venous access Age >= 75 History of VTE Family history of VTE Factor V Leiden Prothrombin [id number] Lupus anticoagulant Anticardiolipin antibodies Elevated serum homocysteine Heparin-induced thrombocytopenia Other congenital or acquired thrombophilia Stroke (< 1 month) Elective arthroplasty Hip, pelvis, or leg fracture Acute spinal cord injury (< 1 month) Prophylaxis Regimen: Total Risk Factor Score Risk Level Prophylaxis Regimen 0-1 Low Early ambulation 2 Moderate Order ONE of the following: *Sequential Compression Device (SCD) *Heparin 5000 units SQ BID 3-4 Higher Order ONE of the following medications: *Heparin 5000 units SQ TID *Enoxaparin/Lovenox 40 mg SQ daily (WT < 150 kg, CrCl > 30 mL/min) *Enoxaparin/Lovenox 30 mg SQ daily (WT < 150 kg, CrCl > 10-29 mL/min) *Enoxaparin/Lovenox 30 mg SQ BID (WT < 150 kg, CrCl > 30 mL/min) AND/OR *Sequential Compression Device (SCD) 5 or more Highest Order ONE of the following medications: *Heparin 5000 units SQ TID (Preferred with Epidurals) *Enoxaparin/Lovenox 40 mg SQ daily (WT < 150 kg, CrCl > 30 mL/min) *Enoxaparin/Lovenox 30 mg SQ daily (WT < 150 kg, CrCl > 10-29 mL/min) *Enoxaparin/Lovenox 30 mg SQ BID (WT < 150 kg, CrCl > 30 mL/min) AND *Sequential Compression Device (SCD) Assessment and Plan - Assessment (1) Syncope Code(s): R55 - Syncope and collapse Status: Acute (2) Laceration of head Code(s): S01.91XA - Laceration without foreign body of unspecified part of head , initial encounter Status: Acute (3) Leukocytosis Code(s): D72.829 - Elevated white blood cell count, unspecified Status: Acute - Plan A/P: 1. Syncope: s/p mechanical fall w/ apparent LOC, CT Head/C-Spine/ Maxillofacial w/ no acute findings, images reviewed. Admit for Observation, telemetry, check serial cardiac enzymes to eval for underlying ischemia. IVF for hydration. 2. Head Laceration: s/p repair in ER, wound management. Analgesics as needed. 3. Leukocytosis: WBC 11.9, check U/a to eval for underlying UTI, repeat labs in am. 4. DVT Prophylaxis: SCD/Teds 5. Social work for d/c planning as needed. 6. Case discussed w/ ER physician at length, labs/records/imaging reviewed by me.
--- NOTE | 2018-07-16 01:09 | XR ---
EXAM DATE: 07/16/2018 12:00 AM EDT AGE/SEX: 77 years / Male INDICATIONS: Fall trauma. CLINICAL DATA: This is the patient's initial encounter. Patient reports that signs and symptoms have been present for 1 day and indicates a pain score of 0/10. MEDICAL/SURGICAL HISTORY: None. Appendectomy. Cholecystectomy. COMPARISON: [facility] – [place], CHEST SINGLE AP, 04/17/2017. . FINDINGS: Portable AP view of the chest demonstrates a normal-sized cardiac silhouette. No effusion, consolidat ion, or pneumothorax is identified. The bones and soft tissues demonstrate no acute finding. CONCLUSION: No acute cardiopulmonary abnormality is identified. Electronically signed by: Frankie Dang MD 07/16/2018 1:07 AM EDT
[2018-07-16] MEDS ORDERED: Sodium Chloride 0.9% 2 ML Flush PRN IV.FLUSH (01:36)
[2018-07-16] MEDS: Sod Chloride 0.9% Inj 1,000 ML IV.CONT SCH ×3 (02:10→20:33)
[2018-07-16 07:46] LABS: Baso % (Auto) 0.5 % (0.0-2.0); Eos # (Auto) 0.1 th/mm3 (0.0-0.4); Eos % (Auto) 1.4 % (0.0-4.0); Hematocrit 33.3 % (39.0-51.0); Hemoglobin 11.2 gm/dL (13.0-17.0); Lymph # (Auto) 1.1 th/mm3 (1.0-4.8); Lymph % (Auto) 16.2 % (9.0-44.0); Mean Corpuscular HGB Conc 33.6 % (32.0-36.0); Mean Corpuscular Hemoglobin 29.5 pg (27.0-34.0); Mean Corpuscular Volume 87.9 fL (80.0-100.0); Mean Platelet Volume 7.2 fL (7.0-11.0); Mono # (Auto) 0.5 th/mm3 (0.0-0.9); Mono % (Auto) 7.3 % (0.0-8.0); Neut # (Auto) 5.1 th/mm3 (1.8-7.7); Neut % (Auto) 74.6 % (16.0-70.0); Platelet Count 214 th/mm3 (150-450); Red Blood Count 3.79 mil/mm3 (4.50-5.90); Red Cell Distribution Width 13.6 % (11.6-17.2); White Blood Count 6.8 th/mm3 (4.0-11.0)
[2018-07-16 08:09] LABS: Albumin 2.9 g/dL (3.4-5.0); Anion Gap 11 meq/L (5-15); Aspartate Aminotransferase 19 U/L (15-37); Blood Urea Nitrogen 27 mg/dL (7-18); Calcium 8.3 mg/dL (8.5-10.1); Chloride 107 meq/L (98-107); Glomerular Filtration Rate 26 mL/min (>89); Glucose,Random 104 mg/dL (74-106); Potassium 4.4 meq/L (3.5-5.1); Sodium 140 meq/L (136-145)
[2018-07-16 08:14] LABS: Alanine Aminotransferase 18 U/L (12-78); Alkaline Phosphatase 67 U/L (45-117); Total Protein 6.6 g/dL (6.4-8.2); Troponin I 0.02 ng/mL (0.02-0.05)
[2018-07-16] MEDS: Senna/Docusate Sodium 8.6/50 MG Tablet PO SCH ×2 (09:01→20:33)
[2018-07-16] MEDS: Sodium Chloride 0.9% 2 ML Flush BID IV.FLUSH SCH ×2 (09:01→20:33)
--- NOTE | 2018-07-16 09:17 | US ---
EXAM DATE: 07/16/2018 12:00 AM EDT AGE/SEX: 77 years / Male INDICATIONS: Increased BUN/Creatnine. CLINICAL DATA: This is the patient's initial encounter. Patient reports that signs and symptoms have been present for 1 day and indicates a pain score of 0/10. MEDICAL/SURGICAL HISTORY: . Glaucoma. Appendectomy. Cholecystectomy. Hernia repair. COMPARISON: [facility], US KIDNEY, BILATERAL, 11/20/2015. . MEASUREMENTS: Right Kidney:__12.1 x 4.6 x 5.6 cm Left Kidney:__10.2 x 4.9 x 5.2 cm FINDINGS: Right Kidney: No mass or hydronephrosis. Minimally complex cyst with septations seen measuring 15 x 1 6 x 12 mm. There is also an echogenic focus in the right kidney measuring 6 to 7 mm. Left Kidney: Simple cyst measures 16 x 14 x 17 mm. Nonobstructing calculus measures 5 mm. There is mi ld hydronephrosis left kidney. Bladder: Enlarged prostate gland measures 6.1 x 5.7 x 7.4 cm. Bladder calculus measures 9 x 5 x 8 mm. Other: None. CONCLUSION: 1. Mild hydronephrosis left kidney. 2. Nonobstructing bilateral renal calculi. 3. Bladder calculus measures 9 mm. 4. Enlarged prostate gland. Electronically signed by: Amadou Strange MD 07/16/2018 9:16 AM EDT
--- NOTE | 2018-07-16 10:23 | ECG ---
Date Performed: 07/15/2018 Time Performed: 20:32:54 PTAGE: 77 years EKG: Sinus rhythm MODERATE INTRAVENTRICULAR CONDUCTION DELAY NONSPECIFIC ST & T-WAVE ABNORMALITY BORDERLINE ECG Since the PREVIOUS TRACING , no significant change noted PREVIOUS TRACIN04/17/2017 16.21 DOCTOR: Stacey Iverson Interpretating Date/Time 07/16/2018 10:22:17
--- NOTE | 2018-07-16 12:34 | ECHRPT ---
Indication: CARDIOMYOPATHY CONCLUSIONS Normal left ventricular size. Mild concentric left ventricular hypertrophy. The left ventricular systolic function is low normal with an estimated ejection fraction in the rang e of 50- 55%. Trace mitral valve regurgitation. There is trace tricuspid valve regurgitation. BP: / HR: Rhythm: MEASUREMENTS (Male / Female) Normal Values Technical Quality:Technically difficult study 2D ECHO LV Diastolic Diameter PLAX 5.1 cm 4.2 - 5.9 / 3.9 - 5.3 cm LV Systolic Diameter PLAX 4.2 cm IVS Diastolic Thickness 1.4 cm 0.6 - 1.0 / 0.6 - 0.9 cm LVPW Diastolic Thickness 1.4 cm 0.6 - 1.0 / 0.6 - 0.9 cm LV Relative Wall Thickness 0.5 RV Internal Dim ED PLAX 2.8 cm LVOT Diameter 1.8 cm Aortic Root Diameter 2.6 cm LA Systolic Diameter LX 3.6 cm 3.0 - 4.0 / 2.7 - 3.8 cm LV Ejection Fraction MOD 4C 52.0 % LV Ejection Fraction 4C AL 54.2 % M-MODE Aortic Root Diameter MM 3.5 cm LA Systolic Diameter MM 4.4 cm LA Ao Ratio MM 1.3 AV Cusp Separation MM 1.8 cm DOPPLER AV Peak Velocity 132.0 cm/s AV Peak Gradient 7.0 mmHg LVOT Peak Velocity 93.8 cm/s LVOT Peak Gradient 3.5 mmHg AV Area Cont Eq pk 1.8 cm Mitral E Point Velocity 28.0 cm/s Mitral A Point Velocity 56.3 cm/s Mitral E to A Ratio 0.5 LV E' Lateral Velocity 5.9 cm/s Mitral E to LV E' Lateral Ratio 4.8 LV E' Septal Velocity 6.4 cm/s Mitral E to LV E' Septal Ratio 4.4 TR Peak Velocity 252.0 cm/s TR Peak Gradient 25.4 mmHg Right Atrial Pressure 10.0 mmHg Pulmonary Artery Systolic Pressu 35.4 mmHg Right Ventricular Systolic Press 35.4 mmHg PV Peak Velocity 92.1 cm/s PV Peak Gradient 3.4 mmHg FINDINGS LEFT VENTRICLE Normal left ventricular size. Mild concentric left ventricular hypertrophy. The left ventricular systolic function is low normal with an estimated ejection fraction in the rang e of 50- 55%. MITRAL VALVE Trace mitral valve regurgitation. TRICUSPID VALVE There is trace tricuspid valve regurgitation. Maira Sarabia MD (Electronically Signed) Final Date:16 July 2018 12:33
--- NOTE | 2018-07-16 15:29 | P.PN ---
Subjective Interval history: Follow up for fall/syncope, MELANIA. The patient is seen with his 2 sisters at bedside. The patient reports is was standing in his kitchen when he all of a sudden just passed out and fell to the ground. He denies noticing any lightheadedness, dizziness, chest pain, palpitations, or shortness of breath before or after the episode. It is unknown how long he was down. The patient lives alone. Currently he states he feels better and wants to go home. Discussed results of labs and imaging. The patient hasn't been to a physician in over 4-5years, per the sisters. He takes only aspirin and glaucoma eye drops daily. Many years ago while in [place], he was on a medication to control his heart rate, but they cannot recall any further details. Denies any diagnosed history of dementia. Denies any history of stroke, diabetes, or heart disease. PT is recommending rehab, however the patient initially adamantly wanted to go home. The patient's sisters feel the patient would be safer in rehab, at least until able to regain some strength. The patient has agreed to continued admission and will consider rehab placement if this is an option. Physical Exam Vital signs: Vital Signs 07/15/18 19:24 07/15/18 20:39 07/15/18 22:45 Temperature 97.4 F L Pulse Rate 92 H 84 74 Respiratory Rate 20 18 16 Blood Pressure 125/68 154/77 H 144/62 H Pulse Oximetry 97 95 98 07/15/18 22:58 07/16/18 00:00 07/16/18 04:00 Temperature 97.5 F L 97.9 F Pulse Rate 65 73 72 Respiratory Rate 19 20 Blood Pressure 174/84 H 182/88 H Pulse Oximetry 96 98 07/16/18 05:28 07/16/18 07:50 07/16/18 12:47 Temperature 98.1 F 97.8 F 98.4 F Pulse Rate 70 69 82 Respiratory Rate 20 20 20 Blood Pressure 149/81 H 166/83 H 157/83 H Pulse Oximetry 99 99 99 Intake & Output 07/15/18 07/16/18 07/16/18 18:59 06:59 18:59 Intake Total 1000 / 1000 Output Total 320 / 320 Balance -320 / -320 1000 / 1000 Weight 113.59 kg Intake: IV 1000 / 1000 NS Inj 1,000 ML @ 100 mls/hr IV 1000 / 1000 .CONT .Q10H KAYLYN Rx#:[id number] Output: Urine 320 / 320 Other: # Voids 0 Narrative: GENERAL: Pleasant elderly male in no acute distress. SKIN: Focused skin assessment warm and dry. +head laceration above right eyebrow s/p repair with sutures. HEENT: PERRLA, EOMI. No scleral icterus or conjunctival pallor. No lid lag or facial droop. CARDIOVASCULAR: Regular rate and rhythm. No obvious murmurs to auscultation. No chest tenderness to palpation. RESPIRATORY: No obvious rhonchi or wheezing. Clear to auscultation. Breath sounds equal bilaterally. GASTROINTESTINAL: Abdomen soft, non-tender, nondistended. BS normal. MUSCULOSKELETAL: Extremities without clubbing, cyanosis, or edema. No obvious deformities. NEUROLOGICAL: Awake, alert and oriented x4. No focal neurologic deficits. Moving both upper and lower extremities spontaneously. PSYCHIATRIC: Appropriate mood and affect. Insight and judgment normal. Results - Labs CBC & Chem 7: 07/16/18 07:05 07/16/18 07:05 Laboratory Results - last 24 hr 07/15/18 07/15/18 07/16/18 20:34 20:34 02:26 WBC 11.9 H RBC 4.12 L Hgb 12.1 L Hct 36.8 L MCV 89.3 MCH 29.5 MCHC 33.0 RDW 13.5 Plt Count 267 MPV 7.1 Neut % (Auto) 85.9 H Lymph % (Auto) 7.7 L Weston % (Auto) 5.9 Eos % (Auto) 0.2 Baso % (Auto) 0.3 Neut # (Auto) 10.2 H Lymph # (Auto) 0.9 L Weston # (Auto) 0.7 Eos # (Auto) 0.0 Baso # (Auto) 0.0 WBC Differential . Differential Comment Auto diff final Sodium 139 Potassium 4.5 Chloride 105 Carbon Dioxide 23.1 Anion Gap 11 BUN 31 H Creatinine 2.81 H Estimated GFR 22 L Random Glucose 130 H Calcium 8.5 Total Bilirubin 0.2 AST 24 ALT 22 Alkaline Phosphatase 83 Troponin I 0.03 0.03 Total Protein 7.4 Albumin 3.3 L 07/16/18 07/16/18 07:05 07:05 WBC 6.8 RBC 3.79 L Hgb 11.2 L Hct 33.3 L MCV 87.9 MCH 29.5 MCHC 33.6 RDW 13.6 Plt Count 214 MPV 7.2 Neut % (Auto) 74.6 H Lymph % (Auto) 16.2 Weston % (Auto) 7.3 Eos % (Auto) 1.4 Baso % (Auto) 0.5 Neut # (Auto) 5.1 Lymph # (Auto) 1.1 Weston # (Auto) 0.5 Eos # (Auto) 0.1 Baso # (Auto) 0.0 WBC Differential . Differential Comment Auto diff final Sodium 140 Potassium 4.4 Chloride 107 Carbon Dioxide 22.0 Anion Gap 11 BUN 27 H Creatinine 2.40 H Estimated GFR 26 L Random Glucose 104 Calcium 8.3 L Total Bilirubin 0.4 AST 19 ALT 18 Alkaline Phosphatase 67 Troponin I 0.02 Total Protein 6.6 D Albumin 2.9 L - Imaging Impressions Cervical Spine CT 07/15/18 20:26 CONCLUSION: 1. No evidence of compression deformity or spondylolisthesis. 2. Multilevel degenerative changes with neural foraminal stenosis as described above. Face CT 07/15/18 20:26 CONCLUSION: 1. No facial bone fractures seen. Head CT 07/15/18 20:26 CONCLUSION: 1. No acute findings in the brain. 2. Stable moderate severity central and cortical atrophy. . Abdomen/Bladder Ultrasound 07/16/18 00:00 CONCLUSION: 1. Mild hydronephrosis left kidney. 2. Nonobstructing bilateral renal calculi. 3. Bladder calculus measures 9 mm. 4. Enlarged prostate gland. Chest X-Ray 07/16/18 00:00 CONCLUSION: No acute cardiopulmonary abnormality is identified. Assessment and Plan - Assessment (1) Syncope Code(s): R55 - Syncope and collapse Status: Acute (2) Laceration of head Code(s): S01.91XA - Laceration without foreign body of unspecified part of head , initial encounter Status: Acute (3) Leukocytosis Code(s): D72.829 - Elevated white blood cell count, unspecified Status: Acute - Plan 77-year-old male with a PMH of Glaucoma who was brought to the ER after apparent syncopal event. Pt w/ mechanical trip and fall, +head trauma, unsure if he had LOC. Syncope with fall/injury: s/p mechanical fall w/ apparent LOC. -CT Head reviewed, no acute findings, shows stable moderate severity central and cortical atrophy -CT maxillofacial with no acute findings -CT C-spine with no acute findings; shows multilevel degenerative changes with neural foraminal stenosis -Check echocardiogram -Monitor on telemetry -Check orthostatics -Give IVF hydration -Consult PT, recommending rehab vs home with 24hr supervision -Case management consulted to assist with discharge planning Forehead Laceration: secondary to fall as above - s/p repair in ER, wound management. -Analgesics as needed. -Have sutures removed in 5 days, discussed with patient/family Leukocytosis: WBC 11.9, possibly reactive, rule out infection -check U/a to eval for underlying UTI -repeat labs in am. MELANIA: Cr 2.81, suspect secondary to dehydration -no hx of CKD, EMR records show prior visit with Cr 2.14, however this was during admission for heat exhaustion/syncope -Renal U/S showed Mild hydronephrosis left kidney; Nonobstructing bilateral renal calculi; Bladder calculus measures 9 mm, Enlarged prostate gland -Check urinalysis -avoid nephrotoxins -give IVF hydration -repeat BMP in am Left 3rd Digit Injury: patient with significant ecchymosis/edema of left 3rd digit s/p fall -check finger xray -ice, elevate, analgesics prn DVT Prophylaxis: SCD/Teds
--- NOTE | 2018-07-16 16:16 | XR ---
EXAM DATE: 07/16/2018 12:00 AM EDT AGE/SEX: 77 years / Male INDICATIONS: Left hand, third digit pain. Patient fell. CLINICAL DATA: This is the patient's initial encounter. Patient reports that signs and symptoms have been present for 3 days and indicates a pain score of 8/10. MEDICAL/SURGICAL HISTORY: None. None. COMPARISON: None . FINDINGS: Multiple views left third finger reveal osteoarthritis involving the DIP joint and to a lesser degree PIP joints. There is an acute fracture involving the base of the distal phalanx best appreciated on the lateral projection. There is resulting flexion at the DIP joint. Remaining visualized bony struct ures are unremarkable. CONCLUSION: Acute avulsion fracture involving the dorsal aspects of the distal phalanx of the third finger with r esulting flexion of the joint. Electronically signed by: Dion Nicolas MD 07/16/2018 4:15 PM EDT
[2018-07-16 19:21] LABS: Bacteria,Urine Rare /hpf; Bilirubin,Urine Negative (Negative); Clarity,Urine Cloudy (Clear); Color,Urine Yellow (Yellw/Straw); Glucose,Urine (UA) Negative (Negative); Hyaline Casts,Urine 1 /lpf (0-3); Leukocyte Esterase,Urine Small (Negative); Mucus,Urine Few /lpf (Occasional); Nitrite,Urine Negative (Negative); Specific Gravity,Urine 1.013 (1.002-1.035); Squamous Epithelial Cell,Urine 1 /hpf (0-5)
[2018-07-16 21:37] LABS: Hemoglobin A1c 6.2 % (4.3-6.0)
[2018-07-16] MEDS: Dorzolamide-Timolol 2/0.5% Opth Drops 10 ML Bottle RIGHT EYE SCH (21:59)
[2018-07-17] MEDS: Sod Chloride 0.9% Inj 1,000 ML IV.CONT SCH (05:56)
[2018-07-17 07:28] LABS: Baso % (Auto) 0.6 % (0.0-2.0); Eos # (Auto) 0.2 th/mm3 (0.0-0.4); Eos % (Auto) 2.2 % (0.0-4.0); Hematocrit 32.9 % (39.0-51.0); Hemoglobin 10.8 gm/dL (13.0-17.0); Lymph # (Auto) 1.1 th/mm3 (1.0-4.8); Lymph % (Auto) 15.7 % (9.0-44.0); Mean Corpuscular Hemoglobin 29.4 pg (27.0-34.0); Mean Corpuscular Volume 89.1 fL (80.0-100.0); Mean Platelet Volume 7.4 fL (7.0-11.0); Mono # (Auto) 0.5 th/mm3 (0.0-0.9); Mono % (Auto) 6.5 % (0.0-8.0); Neut # (Auto) 5.4 th/mm3 (1.8-7.7); Platelet Count 210 th/mm3 (150-450); Red Blood Count 3.69 mil/mm3 (4.50-5.90); Red Cell Distribution Width 13.6 % (11.6-17.2); White Blood Count 7.1 th/mm3 (4.0-11.0)
[2018-07-17 08:23] LABS: Calcium 7.9 mg/dL (8.5-10.1); Carbon Dioxide 23.9 meq/L (21.0-32.0); Potassium 4.8 meq/L (3.5-5.1)
[2018-07-17 08:26] LABS: Chol/HDL Ratio 4.07 Ratio; HDL Cholesterol 37.1 mg/dL (40.0-60.0)
[2018-07-17] MEDS: Sodium Chloride 0.9% 2 ML Flush BID IV.FLUSH SCH ×3 (08:34→20:54)
[2018-07-17] MEDS: Senna/Docusate Sodium 8.6/50 MG Tablet PO SCH ×2 (08:34→20:51)
--- NOTE | 2018-07-17 16:50 | P.PN ---
Subjective Interval history: Patient is seen lying in bed. His 2 sisters are bedside. He tells me he is not experiencing any episodes of dizziness or faintness. No chest pain or shortness of breath. No nausea vomiting or diarrhea also repeats that he had no dizziness or faintness prior to his fall. This is his third fall recently. 2 of the falls were after getting up from a reclining position. The third fall was actually a syncopal episode while sitting in his car -patient reports that he was waiting for someone and he got very hot and uncomfortable. He does live alone and is a very high fall risk. Does not follow with primary and seems reluctant to do so. Physical Exam Vital signs: Vital Signs 07/16/18 19:39 07/16/18 22:58 07/17/18 00:00 Temperature 98.4 F 98.3 F Pulse Rate 71 69 70 Respiratory Rate 19 19 Blood Pressure 159/85 H 159/84 H Pulse Oximetry 97 99 07/17/18 04:00 07/17/18 07:26 07/17/18 11:42 Temperature 79.8 F L 97.9 F 98.5 F Pulse Rate 82 70 70 Respiratory Rate 20 20 18 Blood Pressure 154/73 H 174/94 H 196/94 H Pulse Oximetry 96 98 99 07/17/18 16:13 Temperature 97.6 F Pulse Rate 75 Respiratory Rate 20 Blood Pressure 195/98 H Pulse Oximetry 97 Intake & Output 07/16/18 07/17/18 07/17/18 18:59 06:59 18:59 Intake Total 1550 / 1550 1100 / 1100 400 / 400 Output Total 820 / 820 Balance 1550 / 1550 280 / 280 400 / 400 Weight 113.59 kg Intake: IV 1000 / 1000 1100 / 1100 400 / 400 NS Inj 1,000 ML @ 100 mls/hr IV 1000 / 1000 1000 / 1000 400 / 400 .CONT .Q10H [facility] Rx#:[id number] Rocephin Inj 1,000 MG In NS Inj 100 / 100 100 ML @ 200 mls/hr IV.SIG Q24H [facility] Rx#:[id number] Oral 550 / 550 Output: Urine 820 / 820 Other: # Voids 2 3 0 Date of Last Bowel Movement 07/16/18 # Bowel Movements 0 # Incontinent Bowel Movements 0 Narrative: GENERAL: Pleasant elderly male in no acute distress. SKIN: Focused skin assessment warm and dry. +head laceration above right eyebrow and top of scalp s/p repair with sutures/gerson. HEENT: PERRLA, EOMI. No scleral icterus or conjunctival pallor. No lid lag or facial droop. CARDIOVASCULAR: Regular rate and rhythm. No obvious murmurs to auscultation. No chest tenderness to palpation. RESPIRATORY: No obvious rhonchi or wheezing. Clear to auscultation. Breath sounds equal bilaterally. GASTROINTESTINAL: Abdomen soft, non-tender, nondistended. BS normal. MUSCULOSKELETAL: Extremities without clubbing, cyanosis, or edema. No obvious deformities. NEUROLOGICAL: Awake, alert and oriented x4. No focal neurologic deficits. Moving both upper and lower extremities spontaneously. PSYCHIATRIC: Appropriate mood and affect. Insight and judgment normal. Results - Labs CBC & Chem 7: 07/17/18 06:35 07/17/18 06:30 Laboratory Results - last 24 hr 07/16/18 07/16/18 07/17/18 07:05 19:00 06:30 WBC RBC Hgb Hct MCV MCH MCHC RDW Plt Count MPV Neut % (Auto) Lymph % (Auto) [place] % (Auto) Eos % (Auto) Baso % (Auto) Neut # (Auto) Lymph # (Auto) [place] # (Auto) Eos # (Auto) Baso # (Auto) WBC Differential Differential Comment Sodium 145 Potassium 4.8 Chloride 111 H Carbon Dioxide 23.9 Anion Gap 10 BUN 27 H Creatinine 2.34 H Estimated GFR 27 L Random Glucose 86 Hemoglobin A1c 6.2 H Calcium 7.9 L Total Creatine Kinase 180 Triglycerides 100 Cholesterol 151 LDL Cholesterol, Calc 94 HDL Cholesterol 37.1 L Cholesterol/HDL Ratio 4.07 Urine Color Yellow Urine Clarity Cloudy H Urine pH 5.0 Ur Specific [place] 1.013 Urine Protein 30 H Urine Glucose (UA) Negative Urine Ketones Negative Urine Occult Blood Large H Urine Nitrate Negative Urine Bilirubin Negative Urine Urobilinogen Less than 2 Ur Leukocyte Esterase Small H Urine RBC Urine WBC 26 H Ur Squamous Epith Cells 1 Urine Bacteria Rare H Hyaline Casts 1 Urine Mucus Few H Micro UA Comment Culture indicated Ur Microscopic Review Not Reportable Urine Culture Comments Culture indicated 07/17/18 06:35 WBC 7.1 RBC 3.69 L Hgb 10.8 L Hct 32.9 L MCV 89.1 MCH 29.4 MCHC 33.0 RDW 13.6 Plt Count 210 MPV 7.4 Neut % (Auto) 75.0 H Lymph % (Auto) 15.7 [place] % (Auto) 6.5 Eos % (Auto) 2.2 Baso % (Auto) 0.6 Neut # (Auto) 5.4 Lymph # (Auto) 1.1 [place] # (Auto) 0.5 Eos # (Auto) 0.2 Baso # (Auto) 0.0 WBC Differential . Differential Comment Auto diff final Sodium Potassium Chloride Carbon Dioxide Anion Gap BUN Creatinine Estimated GFR Random Glucose Hemoglobin A1c Calcium Total Creatine Kinase Triglycerides Cholesterol LDL Cholesterol, Calc HDL Cholesterol Cholesterol/HDL Ratio Urine Color Urine Clarity Urine pH Ur Specific [place] Urine Protein Urine Glucose (UA) Urine Ketones Urine Occult Blood Urine Nitrate Urine Bilirubin Urine Urobilinogen Ur Leukocyte Esterase Urine RBC Urine WBC Ur Squamous Epith Cells Urine Bacteria Hyaline Casts Urine Mucus Micro UA Comment Ur Microscopic Review Urine Culture Comments Microbiology 07/16/18 19:00 Clean Catch Urine Urine Culture - Preliminary <10,000 cfu/mL mixed nely - no further workup Assessment and Plan - Assessment (1) Syncope Code(s): R55 - Syncope and collapse Status: Acute (2) Laceration of head Code(s): S01.91XA - Laceration without foreign body of unspecified part of head , initial encounter Status: Acute (3) Leukocytosis Code(s): D72.829 - Elevated white blood cell count, unspecified Status: Acute - Plan 77-year-old male with a PMH of Glaucoma who was brought to the ER after apparent syncopal event. Pt w/ mechanical trip and fall, +head trauma, unsure if he had LOC. Syncope with fall/injury: s/p mechanical fall w/ apparent LOC. -CT imaging with no acute injury -echocardiogram -not concerning -Monitor on telemetry -Severely orthostatic -Give IVF hydration; stopped. Patient pulled out IV and is likely to continue to pull them out. Encouraged adequate p.o. intake -Consult PT, recommending rehab vs home with 24hr supervision -Case management consulted to assist with discharge planning Forehead Laceration: secondary to fall as above - s/p repair in ER, wound management. -Analgesics as needed. -Have sutures removed in 5 days (initially placed on 07/15), discussed with patient/family Leukocytosis: WBC 11.9, possibly reactive, rule out infection -check U/a to eval for underlying UTI -UA negative -repeat labs in am; resolved MELANIA: Cr 2.81, suspect secondary to dehydration -no hx of CKD, EMR records show prior visit with Cr 2.14, however this was during admission for heat exhaustion/syncope -repeat BMP in am Left 3rd Digit Injury: patient with significant ecchymosis/edema of left 3rd digit s/p fall -check finger xray -avulsion fracture. Hand surgery consulted. -ice, elevate, analgesics prn DVT Prophylaxis: SCD/Teds
[2018-07-17] MEDS: Dorzolamide-Timolol 2/0.5% Opth Drops 10 ML Bottle RIGHT EYE SCH (21:19)
[2018-07-18 06:48] LABS: Calcium 8.6 mg/dL (8.5-10.1); Carbon Dioxide 21.7 meq/L (21.0-32.0); Potassium 4.6 meq/L (3.5-5.1)
[2018-07-18] MEDS: Senna/Docusate Sodium 8.6/50 MG Tablet PO SCH ×2 (09:42→20:13)
[2018-07-18] MEDS: Sodium Chloride 0.9% 2 ML Flush BID IV.FLUSH SCH ×3 (09:43→20:13)
--- NOTE | 2018-07-18 14:39 | P.PN ---
Subjective Interval history: Patient is seen lying quietly in bed. He denies any new problems or complaints. No chest pain or shortness of breath. No nausea vomiting or diarrhea. Nursing reports that he is very symptomatic when moving from a supine to standing position; unstable. Physical Exam Vital signs: Vital Signs 07/17/18 16:13 07/17/18 20:00 07/17/18 22:00 Temperature 97.6 F 97.8 F Pulse Rate 75 72 74 Respiratory Rate 20 18 Blood Pressure 136/75 192/107 H Pulse Oximetry 97 99 07/18/18 00:00 07/18/18 04:00 07/18/18 07:14 Temperature 98.8 F 98.7 F 97.8 F Pulse Rate 75 74 72 Respiratory Rate 18 18 18 Blood Pressure 162/97 H 96/54 L 169/89 H Pulse Oximetry 97 97 95 07/18/18 07:15 07/18/18 07:17 07/18/18 08:00 Temperature 97.4 F L Pulse Rate 79 74 Respiratory Rate 16 Blood Pressure 90/59 L 100/60 165/97 H Pulse Oximetry 97 98 98 07/18/18 08:08 07/18/18 09:00 07/18/18 11:42 Temperature 97.4 F L 97.8 F Pulse Rate 81 66 77 Respiratory Rate 16 18 Blood Pressure 126/75 159/86 H Pulse Oximetry 95 98 Intake & Output 07/17/18 07/18/18 07/18/18 18:59 06:59 18:59 Intake Total 400 / 400 240 / 240 Balance 400 / 400 240 / 240 Weight 113.2 kg Intake: IV 400 / 400 NS Inj 1,000 ML @ 100 mls/hr IV 400 / 400 .CONT .Q10H [facility] Rx#:[id number] Oral 240 / 240 Other: # Voids 0 3 # Bowel Movements 0 0 # Incontinent Bowel Movements 0 0 Narrative: GENERAL: Pleasant elderly male in no acute distress. SKIN: Focused skin assessment warm and dry. +head laceration above right eyebrow and top of scalp s/p repair with sutures/gerson. HEENT: PERRLA, EOMI. No scleral icterus or conjunctival pallor. No lid lag or facial droop. CARDIOVASCULAR: Regular rate and rhythm. No obvious murmurs to auscultation. No chest tenderness to palpation. RESPIRATORY: No obvious rhonchi or wheezing. Clear to auscultation. Breath sounds equal bilaterally. GASTROINTESTINAL: Abdomen soft, non-tender, nondistended. BS normal. MUSCULOSKELETAL: Extremities without clubbing, cyanosis, or edema. No obvious deformities. NEUROLOGICAL: Awake, alert and oriented x4. No focal neurologic deficits. Moving both upper and lower extremities spontaneously. PSYCHIATRIC: Appropriate mood and affect. Insight and judgment normal. Results - Labs CBC & Chem 7: 07/17/18 06:35 07/18/18 04:55 Laboratory Results - last 24 hr 07/18/18 04:55 Sodium 141 Potassium 4.6 Chloride 109 H Carbon Dioxide 21.7 Anion Gap 10 BUN 31 H Creatinine 2.38 H Estimated GFR 27 L Random Glucose 100 Calcium 8.6 Microbiology 07/16/18 19:00 Clean Catch Urine Urine Culture - Final <10,000 cfu/mL mixed nely - no further workup Assessment and Plan - Assessment (1) Syncope Code(s): R55 - Syncope and collapse Status: Acute (2) Laceration of head Code(s): S01.91XA - Laceration without foreign body of unspecified part of head , initial encounter Status: Acute (3) Leukocytosis Code(s): D72.829 - Elevated white blood cell count, unspecified Status: Resolved (4) Orthostatic hypotension Code(s): I95.1 - Orthostatic hypotension Status: Acute (5) Orthostatic dizziness Code(s): R42 - Dizziness and giddiness Status: Acute (6) Unstable balance Code(s): R26.89 - Other abnormalities of gait and mobility Status: Chronic (7) Self-care deficit in patient living alone Code(s): R46.89 - Other symptoms and signs involving appearance and behavior Status: Chronic - Plan 77-year-old male with a PMH of Glaucoma who was brought to the ER after apparent syncopal event. Pt w/ mechanical trip and fall, +head trauma, unsure if he had LOC. Severe orthostatic hypotension causing syncope with fall/injury: -s/p mechanical fall w/ apparent LOC. -CT imaging with no acute injury -echocardiogram -not concerning -Monitor on telemetry -Give IVF hydration; stopped 07/17. Patient pulled out IV and is likely to continue to pull them out. Encouraged adequate p.o. intake -Consult PT, recommending rehab vs home with 24hr supervision -Case management consulted to assist with discharge planning -Zeb[facility] -07/18 - start fludrocortisone. Closely monitor for supine hypertension. Repeat orthostatics after starting medication. Cortisol level ordered. Forehead Laceration: secondary to fall as above - s/p repair in ER, wound management. -Analgesics as needed. -Have sutures removed in 5 days (initially placed on 07/15), discussed with patient/family Leukocytosis: WBC 11.9, possibly reactive, rule out infection -check U/a to eval for underlying UTI -UA negative -repeat labs in am; resolved MELANIA: Cr 2.81, suspect secondary to dehydration versus chronic? -no hx of CKD, EMR records show prior visit with Cr 2.14, however this was during admission for heat exhaustion/syncope -repeat BMP in am Left 3rd Digit Injury: patient with significant ecchymosis/edema of left 3rd digit s/p fall -check finger xray -avulsion fracture. Hand surgery consulted -splint for now and follow-up as outpatient. -ice, elevate, analgesics prn DVT Prophylaxis: SCD/Teds Discharge planning: Patient is likely going to need rehab or SNF placement as he is unsafe to live alone.
[2018-07-18] MEDS: Dorzolamide-Timolol 2/0.5% Opth Drops 10 ML Bottle RIGHT EYE SCH (20:14)
[2018-07-19 07:51] LABS: Calcium 8.7 mg/dL (8.5-10.1); Carbon Dioxide 23.8 meq/L (21.0-32.0); Potassium 4.8 meq/L (3.5-5.1)
[2018-07-19] MEDS: Senna/Docusate Sodium 8.6/50 MG Tablet PO SCH ×2 (08:40→20:51)
[2018-07-19] MEDS: Sodium Chloride 0.9% 2 ML Flush BID IV.FLUSH SCH ×2 (08:40→20:51)
--- NOTE | 2018-07-19 13:41 | P.PN ---
Subjective Interval history: Patient is seen lying in bed. No family is present. He reports that he is feeling better but is still dizzy when he stands. Nursing reports no adverse events overnight. Physical Exam Vital signs: Vital Signs 07/18/18 16:00 07/18/18 20:00 07/18/18 22:00 Temperature 98.8 F 97.8 F Pulse Rate 73 95 H 64 Respiratory Rate 16 18 Blood Pressure 155/87 H 110/75 Pulse Oximetry 97 97 07/18/18 23:32 07/19/18 04:00 07/19/18 07:43 Temperature 97.4 F L 98.7 F 97.5 F L Pulse Rate 67 74 77 Respiratory Rate 20 20 20 Blood Pressure 96/55 L 127/79 116/69 Pulse Oximetry 99 92 L 98 07/19/18 12:09 Temperature 98.2 F Pulse Rate 68 Respiratory Rate 20 Blood Pressure 163/89 H Pulse Oximetry 98 Intake & Output 07/18/18 07/19/18 07/19/18 18:59 06:59 18:59 Other: Date of Last Bowel Movement 07/18/18 07/18/18 # Bowel Movements 0 # Incontinent Bowel Movements 0 Narrative: GENERAL: Pleasant elderly male in no acute distress. SKIN: Focused skin assessment warm and dry. +head laceration above right eyebrow and top of scalp s/p repair with sutures/gerson. HEENT: PERRLA, EOMI. No scleral icterus or conjunctival pallor. No lid lag or facial droop. CARDIOVASCULAR: Regular rate and rhythm. RESPIRATORY: No obvious rhonchi or wheezing. Clear to auscultation. Breath sounds equal bilaterally. GASTROINTESTINAL: Abdomen soft, non-tender, nondistended. BS normal. MUSCULOSKELETAL: Extremities without clubbing, cyanosis, or edema. No obvious deformities. NEUROLOGICAL: Awake, alert and oriented x4. No focal neurologic deficits. Moving both upper and lower extremities spontaneously. PSYCHIATRIC: Appropriate mood and affect. Insight and judgment normal; but somewhat poor historian. Results - Labs CBC & Chem 7: 07/17/18 06:35 07/19/18 06:48 Laboratory Results - last 24 hr 07/19/18 07/19/18 06:48 06:48 Sodium 140 Potassium 4.8 Chloride 108 H Carbon Dioxide 23.8 Anion Gap 8 BUN 33 H Creatinine 2.31 H Estimated GFR 27 L Random Glucose 88 Calcium 8.7 Cortisol 16.6 Microbiology 07/16/18 19:00 Clean Catch Urine Urine Culture - Final <10,000 cfu/mL mixed nely - no further workup Assessment and Plan - Assessment (1) Syncope Code(s): R55 - Syncope and collapse Status: Acute (2) Laceration of head Code(s): S01.91XA - Laceration without foreign body of unspecified part of head , initial encounter Status: Acute (3) Leukocytosis Code(s): D72.829 - Elevated white blood cell count, unspecified Status: Resolved (4) Orthostatic hypotension Code(s): I95.1 - Orthostatic hypotension Status: Acute (5) Orthostatic dizziness Code(s): R42 - Dizziness and giddiness Status: Acute (6) Unstable balance Code(s): R26.89 - Other abnormalities of gait and mobility Status: Chronic (7) Self-care deficit in patient living alone Code(s): R46.89 - Other symptoms and signs involving appearance and behavior Status: Chronic - Plan 77-year-old male with a PMH of Glaucoma who was brought to the ER after apparent syncopal event. Pt w/ mechanical trip and fall, +head trauma, unsure if he had LOC. Severe orthostatic hypotension causing syncope with fall/injury: -s/p mechanical fall w/ apparent LOC. -CT imaging with no acute injury -echocardiogram -not concerning -Monitor on telemetry -Give IVF hydration; stopped 07/17. Patient pulled out IV and is likely to continue to pull them out. Encouraged adequate p.o. intake -Consult PT, recommending rehab vs home with 24hr supervision -Case management consulted to assist with discharge planning -07/18 - start fludrocortisone. Closely monitor for supine hypertension. -Repeat orthostatics after starting medication and with ab binder and TEDs. Forehead Laceration: secondary to fall as above - s/p repair in ER, wound management. -Analgesics as needed. -Have sutures removed in 5 days (initially placed on 07/15), discussed with patient/family Leukocytosis: WBC 11.9, possibly reactive, rule out infection -check U/a to eval for underlying UTI -UA negative -repeat labs in am; resolved MELANIA: Cr 2.81, suspect secondary to dehydration versus CKD? -no hx of CKD, EMR records show prior visit with Cr 2.14, however this was during admission for heat exhaustion/syncope. -Cr now seems to be baseline 2.3 -repeat BMP in am Left 3rd Digit Injury: patient with significant ecchymosis/edema of left 3rd digit s/p fall -check finger xray -avulsion fracture. Hand surgery consulted -splint for now and follow-up as outpatient. -ice, elevate, analgesics prn DVT Prophylaxis: SCD/Teds Discharge planning: Patient is likely going to need rehab or SNF placement as he is unsafe to live alone.
[2018-07-19] MEDS: Dorzolamide-Timolol 2/0.5% Opth Drops 10 ML Bottle RIGHT EYE SCH (20:53)
[2018-07-20] MEDS: Senna/Docusate Sodium 8.6/50 MG Tablet PO SCH ×2 (09:47→21:09)
[2018-07-20] MEDS: Sodium Chloride 0.9% 2 ML Flush BID IV.FLUSH SCH ×2 (09:53→21:09)
--- NOTE | 2018-07-20 18:23 | P.PN ---
Subjective Interval history: Patient is seen lying quietly in bed. He tells me that he is feeling better. Denies any dizziness when sitting or standing. He is a somewhat poor historian. Nursing reports no adverse events overnight but that he does continue to have severe orthostatic hypotension with pursed lip breathing when standing. Physical Exam Vital signs: Vital Signs 07/19/18 19:27 07/19/18 22:00 07/19/18 23:52 Temperature 98.5 F 97.8 F Pulse Rate 74 68 75 Respiratory Rate 16 16 Blood Pressure 138/84 159/91 H Pulse Oximetry 95 94 L 07/20/18 03:56 07/20/18 08:00 07/20/18 09:00 Temperature 97.8 F 97.8 F Pulse Rate 69 71 67 Respiratory Rate 16 16 Blood Pressure 174/88 H 165/90 H Pulse Oximetry 96 96 07/20/18 12:00 07/20/18 16:00 Temperature 98.9 F 98.8 F Pulse Rate 73 82 Respiratory Rate 18 16 Blood Pressure 155/93 H 77/55 L Pulse Oximetry 98 95 Intake & Output 07/19/18 07/20/18 07/20/18 18:59 06:59 18:59 Other: # Voids 3 Date of Last Bowel Movement 07/18/18 # Bowel Movements 1 # Incontinent Bowel Movements 0 Narrative: GENERAL: Pleasant elderly male in no acute distress. SKIN: Focused skin assessment warm and dry. +head laceration above right eyebrow and top of scalp s/p repair with sutures/gerson. HEENT: PERRLA, EOMI. No scleral icterus or conjunctival pallor. No lid lag or facial droop. CARDIOVASCULAR: Regular rate and rhythm. RESPIRATORY: No obvious rhonchi or wheezing. Clear to auscultation. Breath sounds equal bilaterally. GASTROINTESTINAL: Abdomen soft, non-tender, nondistended. BS normal. MUSCULOSKELETAL: Extremities without clubbing, cyanosis, or edema. No obvious deformities. NEUROLOGICAL: Awake, alert and oriented x4. No focal neurologic deficits. Moving both upper and lower extremities spontaneously. PSYCHIATRIC: Appropriate mood and affect. Insight and judgment normal; but somewhat poor historian. Results - Labs CBC & Chem 7: 07/17/18 06:35 07/19/18 06:48 Assessment and Plan - Assessment (1) Syncope Code(s): R55 - Syncope and collapse Status: Acute (2) Laceration of head Code(s): S01.91XA - Laceration without foreign body of unspecified part of head , initial encounter Status: Acute (3) Leukocytosis Code(s): D72.829 - Elevated white blood cell count, unspecified Status: Resolved (4) Orthostatic hypotension Code(s): I95.1 - Orthostatic hypotension Status: Acute (5) Orthostatic dizziness Code(s): R42 - Dizziness and giddiness Status: Acute (6) Unstable balance Code(s): R26.89 - Other abnormalities of gait and mobility Status: Chronic (7) Self-care deficit in patient living alone Code(s): R46.89 - Other symptoms and signs involving appearance and behavior Status: Chronic - Plan 77-year-old male with a PMH of Glaucoma who was brought to the ER after apparent syncopal event. Pt w/ mechanical trip and fall, +head trauma, unsure if he had LOC. Severe orthostatic hypotension causing syncope with fall/injury: -s/p mechanical fall w/ apparent LOC. -CT imaging with no acute injury -echocardiogram -not concerning -Monitor on telemetry -Give IVF hydration; stopped 07/17. Patient pulled out IV and is likely to continue to pull them out. Encouraged adequate p.o. intake -Consult PT, recommending rehab vs home with 24hr supervision -Case management consulted to assist with discharge planning -07/18 - started fludrocortisone. Closely monitor for supine hypertension. -Repeat orthostatics after starting medication and with ab binder and TEDs. Forehead Laceration: secondary to fall as above - s/p repair in ER, wound management. -Analgesics as needed. -Have sutures removed in 5 days (initially placed on 07/15), discussed with patient/family -Retained gerson for now -be sure to give order for removal when patient is transferred to SNF Leukocytosis: WBC 11.9, possibly reactive, rule out infection -check U/a to eval for underlying UTI -UA negative -repeat labs in am; resolved MELANIA: Cr 2.81, suspect secondary to dehydration versus CKD? -no hx of CKD, EMR records show prior visit with Cr 2.14, however this was during admission for heat exhaustion/syncope. -Cr now seems to be baseline 2.3 -repeat BMP in am Left 3rd Digit Injury: patient with significant ecchymosis/edema of left 3rd digit s/p fall -check finger xray -avulsion fracture. Hand surgery consulted -splint for now and follow-up as outpatient. -ice, elevate, analgesics prn DVT Prophylaxis: SCD/Teds Discharge planning: Patient is likely going to need rehab or SNF placement as he is unsafe to live alone.
[2018-07-20] MEDS: Dorzolamide-Timolol 2/0.5% Opth Drops 10 ML Bottle RIGHT EYE SCH (21:08)
[2018-07-21 08:09] VITALS: BP 135/75; PULSE 71; RESP 16; TEMP 97.9; O2SAT 96
--- NOTE | 2018-07-21 08:56 | P.PN ---
Subjective Interval history: Patient is seen lying comfortably in bed. Continues to have severe orthostatic hypotension and is a fall hazard. He denies any new concerns or complaints. Nursing reports no adverse events overnight Physical Exam Vital signs: Vital Signs 07/20/18 09:00 07/20/18 12:00 07/20/18 16:00 Temperature 98.9 F 98.8 F Pulse Rate 67 73 82 Respiratory Rate 18 16 Blood Pressure 155/93 H 77/55 L Pulse Oximetry 98 95 07/20/18 19:58 07/20/18 22:00 07/21/18 03:55 Temperature 98.1 F 98.8 F Pulse Rate 73 69 85 Respiratory Rate 18 21 Blood Pressure 151/81 H 140/68 Pulse Oximetry 96 93 L 07/21/18 08:00 Temperature 97.9 F Pulse Rate 71 Respiratory Rate 16 Blood Pressure 135/75 Pulse Oximetry 96 Intake & Output 07/20/18 07/21/18 07/21/18 18:59 06:59 18:59 Other: # Bowel Movements 1 # Incontinent Bowel Movements 0 Narrative: GENERAL: Pleasant elderly male in no acute distress. SKIN: Focused skin assessment warm and dry. +head laceration above right eyebrow and top of scalp s/p repair with gerson. HEENT: PERRLA, EOMI. No scleral icterus or conjunctival pallor. No lid lag or facial droop. CARDIOVASCULAR: Regular rate and rhythm. RESPIRATORY: No obvious rhonchi or wheezing. Clear to auscultation. Breath sounds equal bilaterally. GASTROINTESTINAL: Abdomen soft, non-tender, nondistended. BS normal. MUSCULOSKELETAL: Extremities without clubbing, cyanosis, or edema. No obvious deformities. NEUROLOGICAL: Awake, alert and oriented x4. No focal neurologic deficits. Moving both upper and lower extremities spontaneously. PSYCHIATRIC: Appropriate mood and affect. Insight and judgment normal; but somewhat poor historian. Results - Labs CBC & Chem 7: 07/17/18 06:35 07/19/18 06:48 Assessment and Plan - Assessment (1) Syncope Code(s): R55 - Syncope and collapse Status: Acute (2) Laceration of head Code(s): S01.91XA - Laceration without foreign body of unspecified part of head , initial encounter Status: Acute (3) Leukocytosis Code(s): D72.829 - Elevated white blood cell count, unspecified Status: Resolved (4) Orthostatic hypotension Code(s): I95.1 - Orthostatic hypotension Status: Acute (5) Orthostatic dizziness Code(s): R42 - Dizziness and giddiness Status: Acute (6) Unstable balance Code(s): R26.89 - Other abnormalities of gait and mobility Status: Chronic (7) Self-care deficit in patient living alone Code(s): R46.89 - Other symptoms and signs involving appearance and behavior Status: Chronic - Plan 77-year-old male with a PMH of Glaucoma who was brought to the ER after apparent syncopal event. Pt w/ mechanical trip and fall, +head trauma, unsure if he had LOC. Severe orthostatic hypotension causing syncope with fall/injury: -s/p mechanical fall w/ apparent LOC. -CT imaging with no acute injury -echocardiogram -not concerning -Monitor on telemetry -Give IVF hydration; stopped 07/17. Patient pulled out IV and is likely to continue to pull them out. Encouraged adequate p.o. intake -Consult PT, recommending rehab vs home with 24hr supervision -Case management consulted to assist with discharge planning -07/18 - started fludrocortisone. Closely monitor for supine hypertension. -Repeat orthostatics after starting medication and with ab binder and TEDs. Forehead Laceration: secondary to fall as above - s/p repair in ER, wound management. -Analgesics as needed. -Have sutures removed in 5 days (initially placed on 07/15), discussed with patient/family -Retain gerson for now -be sure to give order for removal when patient is transferred to SNF Leukocytosis: WBC 11.9, possibly reactive, rule out infection -check U/a to eval for underlying UTI -UA negative -repeat labs in am; resolved MELANIA: Cr 2.81, suspect secondary to dehydration versus CKD? -no hx of CKD, EMR records show prior visit with Cr 2.14, however this was during admission for heat exhaustion/syncope. -Cr now seems to be baseline 2.3 -repeat BMP in am Left 3rd Digit Injury: patient with significant ecchymosis/edema of left 3rd digit s/p fall -check finger xray -avulsion fracture. Hand surgery consulted -splint for now and follow-up as outpatient. -ice, elevate, analgesics prn DVT Prophylaxis: SCD/Teds Discharge planning: Patient is medically clear for discharge to rehab/SNF
--- NOTE | 2018-07-21 09:16 | P.DS ---
Date of admission: 07/18/18 14:37 Primary care physician: No Primary Care Physician Attending physician on discharge: Neil Parham Anticipated date of discharge: 07/21/18 Brief History from admission: This is a 77-year-old male with a PMH of Glaucoma who was brought to the ER after apparent syncopal event. Pt w/ mechanical trip and fall, +head trauma, unsure if he had LOC. No fever, chills or chest pain. On arrival, BP 125/68, HR 90, O2 sat 97% on RA, Afebrile. WBC 11.9. Creatinine 2.81, previously 2.14 on 04/17/17. CT C-spine with no acute compression deformity. CT Head negative for acute findings. CT Maxillofacial negative for fracture. S/p laceration repair in ER. DS: Diagnosis - Discharge Diagnosis (1) Syncope Status: Resolved (2) Laceration of head Status: Acute (3) Leukocytosis Status: Resolved (4) Orthostatic hypotension Status: Chronic (5) Orthostatic dizziness Status: Chronic (6) Unstable balance Status: Chronic (7) Self-care deficit in patient living alone Status: Chronic (8) Avulsion fracture of distal phalanx of finger Status: Acute DS: Medications - Discharge Medications Prescriptions: dorzolamide-timolol [Cosopt] 1 drp RIGHT EYE HS #1 bottle fludrocortisone 0.1 mg PO DAILY #30 tab DS: Summary Hospital Course: 77-year-old male with a PMH of Glaucoma who was brought to the ER after apparent syncopal event. Pt w/ mechanical trip and fall, +head trauma, unsure if he had LOC. Presented with facial and scalp lacerations which were sutured and stapled respectively. Laceration above left eyebrow healing well with sutures removed on 07/20. Hector remain in scalp laceration which is also healing well. If healing continues well, recommend removal of sutures on . CT imaging showed no acute injury. He did sustain a avulsion fracture to the left third digit for which hand surgery recommended splinting and outpatient follow-up. Patient was found to be dehydrated which responded to IVF fluid. Acute kidney injury with creatinine of 2.8 which eventually resolved to creatinine of 2.3 which appears to be patient's baseline. Discussions with patient and patient family revealed that patient has fallen multiple times and that he lives alone. Found to have severe orthostatic hypertension and started on fludrocortisone and supportive measures including teds/abdominal binder. Only moderately improved -patient is unsafe to live alone at this time. - Time Spent with Patient Total time spent providing and/or coordinating discharge services: Less than 30 minutes - Quality: VTE Deep Vein Thrombosis/Pulmonary Embolism Present on Admission: No Exam Vital signs: Vital Signs 07/20/18 09:00 07/20/18 12:00 07/20/18 16:00 Temperature 98.9 F 98.8 F Pulse Rate 67 73 82 Respiratory Rate 18 16 Blood Pressure 155/93 H 77/55 L Pulse Oximetry 98 95 07/20/18 19:58 07/20/18 22:00 07/21/18 03:55 Temperature 98.1 F 98.8 F Pulse Rate 73 69 85 Respiratory Rate 18 21 Blood Pressure 151/81 H 140/68 Pulse Oximetry 96 93 L 07/21/18 08:00 Temperature 97.9 F Pulse Rate 71 Respiratory Rate 16 Blood Pressure 135/75 Pulse Oximetry 96 Intake & Output 07/20/18 07/21/18 07/21/18 18:59 06:59 18:59 Other: # Bowel Movements 1 # Incontinent Bowel Movements 0 Narrative: GENERAL: Pleasant elderly male in no acute distress. SKIN: Focused skin assessment warm and dry. +head laceration above right eyebrow and top of scalp s/p repair with hector. HEENT: PERRLA, EOMI. No scleral icterus or conjunctival pallor. No lid lag or facial droop. CARDIOVASCULAR: Regular rate and rhythm. RESPIRATORY: No obvious rhonchi or wheezing. Clear to auscultation. Breath sounds equal bilaterally. GASTROINTESTINAL: Abdomen soft, non-tender, nondistended. BS normal. MUSCULOSKELETAL: Extremities without clubbing, cyanosis, or edema. No obvious deformities. NEUROLOGICAL: Awake, alert and oriented x4. No focal neurologic deficits. Moving both upper and lower extremities spontaneously. PSYCHIATRIC: Appropriate mood and affect. Insight and judgment normal; but somewhat poor historian. Results Procedures completed during hospitalization: none - Impressions ITS Impressions Cervical Spine CT 07/15/18 20:26 CONCLUSION: 1. No evidence of compression deformity or spondylolisthesis. 2. Multilevel degenerative changes with neural foraminal stenosis as described above. Face CT 07/15/18 20:26 CONCLUSION: 1. No facial bone fractures seen. Head CT 07/15/18 20:26 CONCLUSION: 1. No acute findings in the brain. 2. Stable moderate severity central and cortical atrophy. . Abdomen/Bladder Ultrasound 07/16/18 00:00 CONCLUSION: 1. Mild hydronephrosis left kidney. 2. Nonobstructing bilateral renal calculi. 3. Bladder calculus measures 9 mm. 4. Enlarged prostate gland. Chest X-Ray 07/16/18 00:00 CONCLUSION: No acute cardiopulmonary abnormality is identified. Finger X-Ray 07/16/18 00:00 CONCLUSION: Acute avulsion fracture involving the dorsal aspects of the distal phalanx of the third finger with resulting flexion of the joint. Discharge Plan - Discharge Disposition Patient Disposition: 03 Discharge to SNF - Discharge Condition Condition: Stable - Discharge Order Discharge Orders: Discharge Order (Routine); Ordered 07/21/18 Ordered By: Carlotta Hines - Physicians Team Primary Care Provider: Primary Care Heather Ball Attending Provider: Neil Parham Other Providers: [facility],[place]
[2018-07-21] MEDS: Sodium Chloride 0.9% 2 ML Flush BID IV.FLUSH SCH (09:56)
[2018-07-21] MEDS: Senna/Docusate Sodium 8.6/50 MG Tablet PO SCH (09:56)
== END 2018-07-21 11:53 ==
LOC: NEPC 19:00 → NEDA 19:00 → NEPHCDU 23:46 → NEDA 23:46
PROVIDERS: ADMIT Internal Medicine; ATTEND Internal Medicine